=== PATIENT | female | born 1980 | race Caucasian/White ===

== ENCOUNTER 2017-01-16 08:20 | Emergency (ER) | payer OTHER ==
[2017-01-16 08:30] VITALS: BP 118/73; PULSE 73; RESP 18; TEMP 97.3
--- NOTE | 2017-01-16 09:23 | ED ---
General Adult HPI - General Chief complaint: Skin/Abscess/Foreign Body Stated complaint: ear pain Time Seen by Provider: 01/16/17 08:47 Source: patient, RN notes reviewed Mode of arrival: ambulatory Limitations: no limitations - History of Present Illness Initial comments: Patient 36-year-old female who presents emergency room today with a chief complaint of an abscess behind the left ear. Doesn't that she's had this several times the past. States she's had to have it drained. States started 3 days ago was become larger and more swollen. Denies any other complaints or symptoms. Patient denies any recent fever, chills, shortness of breath, chest pain, back pain, abdominal pain, nausea or vomiting, numbness or tingling, dysuria or hematuria, constipation or diarrhea, headaches or visual changes, or any other complaints. - Related Data Home Medications Medication Instructions Recorded Confirmed Ibuprofen [Motrin] 800 mg PO Q8HR PRN 07/24/14 01/16/17 Previous Rx's Medication Instructions Recorded Sulfamethox-Tmp 800-160Mg [Bactrim 1 tab PO Q12HR #20 tab 01/16/17 DS 800-160 mg] Allergies Allergy/AdvReac Type Severity Reaction Status Date / Time No Known Allergies Allergy Verified 01/16/17 08:44 Review of Systems ROS Statement: Those systems with pertinent positive or pertinent negative responses have been documented in the HPI. ROS Other: All systems not noted in ROS Statement are negative. Past Medical History Past Medical History: No Reported History Additional Past Medical History / Comment(s): migraines History of Any Multi-Drug Resistant Organisms: None Reported Past Surgical History: Section Past Psychological History: No Psychological Hx Reported Smoking Status: Former smoker Past Alcohol Use History: Occasional Past Drug Use History: None Reported General Exam - General Exam Comments Initial Comments: General: The patient is awake and alert, in no distress, and does not appear acutely ill. Eye: Pupils are equal, round and reactive to light, extra-ocular movements are intact. No nystagmus. There is normal conjunctiva bilaterally. No signs of icterus. Ears, nose, mouth and throat: There are moist mucous membranes and no oral lesions. Neck: The neck is supple, there is no tenderness or JVD. Cardiovascular: There is a regular rate and rhythm. No murmur, rub or gallop is appreciated. Respiratory: Lungs are clear to auscultation, respirations are non-labored, breath sounds are equal. No wheezes, stridor, rales, or rhonchi. Musculoskeletal: Normal ROM, no tenderness. Strength 5/5. Sensation intact. Pulses equal bilaterally 2+. Neurological: A&O x 3. CN II-XII intact, There are no obvious motor or sensory deficits. Coordination appears grossly intact. Speech is normal. Skin: Patient does have small abscess located behind the left ear. Measures approximately a centimeter across. Area is fluctuant. No abscess head. Psychiatric: Cooperative, appropriate mood & affect, normal judgment. Limitations: no limitations Course Vital Signs 01/16/17 08:27 Temperature 97.3 F L Pulse Rate 73 Respiratory 18 Rate Blood Pressure 118/73 O2 Sat by Pulse 98 Oximetry Procedures - Procedures Initial comment: Procedure: Incision and drainage The skin overlying the abscess was prepped with Betadine, and anesthetized with 1% lidocaine without epinephrine. A #11 scalpel was then used to incise the abscess. Some purulent material was then extracted from the lesion. Wound culture obtained. Gauze dressing placed on top, The patient tolerated the procedure well. Medical Decision Making - Medical Decision Making Agents abscess drained here in the emergency room be started on antibiotic. Patient advised to follow-up Gen. surgery or reliability manager for further evaluation and removal of sebaceous cyst. Disposition Clinical Impression: Abscess Disposition: HOME SELF-CARE Condition: Good Instructions: Abscess (ED) Additional Instructions: Please use medication as discussed. Please follow-up with reliability manager or general surgeon as discussed. Please return to emergency room if the symptoms increase or worsen or for any other concerns. Prescriptions: Sulfamethox-Tmp 800-160Mg [Bactrim DS 800-160 mg] 1 tab PO Q12HR #20 tab Referrals: Do Altman MD [Primary Care Provider] - 1-2 days Amauri Ren MD [STAFF PHYSICIAN] - 1-2 days Time of Disposition: 09:23
== END 2017-01-16 09:37 | disposition home or self-care (01) ==
LOC: EC 08:20
DX: H60.02 Abscess of left external ear (principal); Z87.891 Personal history of nicotine dependence
CPT/HCPCS: 69000; 99282

== ENCOUNTER → 2017-02-10 | Outpatient (CLI) | payer OTHER ==
--- NOTE | 2017-02-10 09:07 | CT ---
EXAMINATION TYPE: CT soft tissue neck wo con DATE OF EXAM: 02/10/2017 8:53 AM COMPARISON: NONE HISTORY: Neck mass/swelling CT DLP: 333.00 mGycm CONTRAST: CT scan of the neck is performed without contrast. The lack of contrast limits evaluation. The study is further limited by streak artifact from dental amalgam. Marker is placed over the left parotid gla nd. Contrast enhanced CT of the neck was performed from the skull base through the lung apices. AIRWAY: The supraglottic, glottic, and subglottic portions of the airway appear patent and free of mass. SALIVARY GLANDS: The submandibular and parotid glands are free of mass or inflammatory process. Ther e are calcifications noted in the expected location of Stensen's duct bilaterally. Stensen's duct mauro cifications difficult to exclude. THYROID GLAND: Tiny 3 mm nodule right thyroid lobe. LYMPH NODES: No adenopathy seen greater than 1cm. LUNG APICES: No nodule or mass is seen. OTHER: Vascular structures are patent. No significant degenerative change of the cervical spine. N o abscess seen. Mucosal thickening is noted of the maxillary sinuses as well as the ethmoid air cells and frontal sinus. IMPRESSION: 1.There are calcifications noted in the expected location of Stensen's duct bilaterally. Stensen's du ct calcifications difficult to exclude. 2. Nonspecific 3 mm nodule right thyroid lobe. 3. Chronic sinusitis.
== END | disposition home or self-care (01) ==
LOC: RADCTMAIN 08:32
PROVIDERS: ATTEND Surgery
DX: E04.1 Nontoxic single thyroid nodule (principal); J32.9 Chronic sinusitis, unspecified
CPT/HCPCS: 70490

== ENCOUNTER 2017-02-27 06:09 | Day surgery (SDC) | payer OTHER ==
[2017-02-24 12:29] VITALS: BMI 27.4
[~2017-02-27 06:09] MED LIST: DEXAMETHASONE SOD PHOSPHATE 10 MG/ML 1 ML VIAL IV ONE; HEPARIN SODIUM,PORCINE 5,000 UNIT/ML 1 ML VIAL SQ ONE; HYDROmorphone 1 MG/ML 1 ML SYRINGE IVP PRN; LACTATED RINGERS 1,000 ML IV SCH; MIDAZOLAM 2 MG/2 ML VIAL IV PRN; ONDANSETRON 4 MG/2 ML VIAL IVP ONE; Pre Op ABX Message 1 EACH MISC MISCELLANE ONE
[2017-02-27 06:40] VITALS: RESP 16; TEMP 97.3
[2017-02-27] MEDS: LACTATED RINGERS 1,000 ML IV SCH ×2 (06:42→07:38)
[2017-02-27] MEDS ORDERED: LIDOCAINE 1% 20 ML VIAL (10MG/ML) FOR IV START INTRADERMA ONE (06:42)
[2017-02-27] MEDS ORDERED: KETAMINE 10 MG/ML 20 ML VIAL ONE (07:38)
[2017-02-27] MEDS ORDERED: diphenhydrAMINE 50 MG/ML 1 ML VIAL ONE (07:38)
[2017-02-27] MEDS ORDERED: SODIUM CHLORIDE 0.9% 50 ML with ceFAZolin 2,000 MG IV ONE ×2 (07:38)
[2017-02-27] MEDS ORDERED: PROPOFOL 10 MG/ML 20 ML VIAL IV ONE (07:38)
[2017-02-27] MEDS ORDERED: fentaNYL (PF) 50 MCG/ML 2 ML AMP ONE (07:38)
[2017-02-27] MEDS ORDERED: LIDOCAINE 1% INJ 10MG/ML (20 ML MDV) ONE (07:38)
[2017-02-27] MEDS ORDERED: KETOROLAC 30 MG/ML 1 ML VIAL ONE (07:38)
[2017-02-27] MEDS ORDERED: MIDAZOLAM 2 MG/2 ML VIAL ONE (07:38)
[2017-02-27] MEDS ORDERED: BUPIVACAIN-EPI 0.25%-1:200,000 30 ML VIAL SQ ONE ×2 (07:50)
--- NOTE | 2017-02-27 08:25 | P.OP ---
Date of Procedure: 02/27/17 Preoperative Diagnosis: Excision of left retroauricular skin lesion Postoperative Diagnosis: Excision of epidermoid cyst Procedure(s) Performed: Excision of dermoid cyst, skin lesion measured 0.4 x 0.3 x 0.1 cm Anesthesia: MAC Pathology: other Disposition: PACU Description of Procedure: Patient a 36-year-old female who presented with a small skin lesion in the retroauricular region with an syndrome and is foul-smelling discharge. This was consistent with a sebaceous cyst. Computed tomography scan did not reveal this to be a branchial cyst. After obtaining informed consent patient was identified in preoperative operating holding area to the operating room placed in supine position given IV sedation. The patient was prepped and draped in the usual sterile surgical fashion and an appropriate timeout was called. After infiltrating local anesthesia A 15 blade was used to make an elliptical incision around the lesion to skin and subcutis tissue with the help of scissors and electrocautery. The subcutis tissue was completely excised with the help of sharp dissection and hemostasis secured with electrocautery after which skin closed with stitches including 3-0 Vicryl and 5-0 nylon. Patient tolerated the procedure well there were no complications she was then taken recovery room in stable condition.
[2017-02-27 08:44] VITALS: BP 100/59; PULSE 71
== END 2017-02-27 09:10 | disposition home or self-care (01) ==
LOC: OR 06:09
PROVIDERS: ATTEND Surgery
DX: L08.9 Local infection of the skin and subcutaneous tissue, unspecified (principal); L90.5 Scar conditions and fibrosis of skin
CPT/HCPCS: 11441; 81025; 88305; J2250; J1200; J1100; J2405; J2001; J3010; J1885; J0690; J2704

== ENCOUNTER 2017-06-11 18:13 | Emergency (ER) | payer OTHER ==
[2017-06-11] MEDS ORDERED: SODIUM CHLORIDE 0.9% 1,000 ML IV STA (19:23)
[2017-06-11] MEDS ORDERED: diphenhydrAMINE 50 MG/ML 1 ML VIAL IVP STA (19:24)
[2017-06-11] MEDS ORDERED: METOCLOPRAMIDE 5 MG/ML 2 ML VIAL IVP STA (19:24)
--- NOTE | 2017-06-11 19:25 | ED ---
General Adult HPI - General Chief complaint: Headache Stated complaint: migraine Time Seen by Provider: 06/11/17 19:16 Source: patient, RN notes reviewed Mode of arrival: ambulatory Limitations: no limitations - History of Present Illness Initial comments: 37-year-old female presents to the emergency Department chief complaint of migraine. Patient states she is long history of migraines and states that she developed a migraine today about 2 hours ago that is gradually gotten worse. Patient states it's much like her normal pain. Patient states she has some photophobia and some nausea. Patient states she has had the blurred vision as well. These are all typical of her migraines she takes Fioricet for migraines but this did not seem to help. Patient denies any fever chills with this any cough cold or runny nose. Patient denies any falls or traumas that led to her migraine. Patient states it is more her normal migraine. Patient denies any recent fever, chills, shortness of breath, chest pain, back pain, abdominal pain , nausea vomiting, numbness or tingling, dysuria or hematuria, constipation or diarrhea, or any other current symptoms. - Related Data Home Medications Medication Instructions Recorded Confirmed Ibuprofen [Motrin] 800 mg PO Q8HR PRN 07/24/14 02/24/17 Butalb/APAP/Caff 50-325-40Mg 1 tab PO BID PRN 06/11/17 06/11/17 [Fioricet 50-325-40] Allergies Allergy/AdvReac Type Severity Reaction Status Date / Time No Known Allergies Allergy Verified 06/11/17 18:22 Review of Systems ROS Statement: Those systems with pertinent positive or pertinent negative responses have been documented in the HPI. ROS Other: All systems not noted in ROS Statement are negative. Past Medical History Past Medical History: No Reported History Additional Past Medical History / Comment(s): migraines, skin lesion behind left ear, hx anemia, History of Any Multi-Drug Resistant Organisms: None Reported Past Surgical History: Section, Tonsillectomy Additional Past Surgical History / Comment(s): C/S x 3 Past Anesthesia/Blood Transfusion Reactions: No Reported Reaction Past Psychological History: No Psychological Hx Reported Smoking Status: Current some day smoker Past Alcohol Use History: Occasional Past Drug Use History: None Reported - Past Family History Mother Family Medical History: No Reported History General Exam Limitations: no limitations General appearance: alert, in no apparent distress Eye exam: Present: normal appearance, PERRL, EOMI. Absent: scleral icterus, conjunctival injection, periorbital swelling ENT exam: Present: normal exam, mucous membranes moist Neck exam: Present: normal inspection. Absent: tenderness, meningismus, lymphadenopathy Respiratory exam: Present: normal lung sounds bilaterally. Absent: respiratory distress, wheezes, rales, rhonchi, stridor Cardiovascular Exam: Present: regular rate, normal rhythm, normal heart sounds. Absent: systolic murmur, diastolic murmur, rubs, gallop, clicks Neurological exam: Present: alert, oriented X3, CN II-XII intact. Absent: motor sensory deficit Psychiatric exam: Present: normal affect, normal mood Skin exam: Present: warm, dry, intact, normal color. Absent: rash Course Vital Signs 06/11/17 18:20 Temperature 98.3 F Pulse Rate 75 Respiratory 20 Rate Blood Pressure 132/80 O2 Sat by Pulse 99 Oximetry - Reevaluation(s) Reevaluation #1: 06/11/17 20:35 At this time patient is feeling better and would like to be discharged. Medical Decision Making - Medical Decision Making 37 yo female presents to the emergency Department chief complaint of headache much like her normal headaches. Patient's symptoms have improved. This and the patient will be discharged home. We discussed follow-up return parameters all questions. Patient states she understood and she is here and plan. She will be discharged. Disposition Clinical Impression: Headache Disposition: HOME SELF-CARE Condition: Stable Instructions: Acute Headache (ED) Additional Instructions: Please use medication as discussed. Please follow up with family doctor if symptoms have not improved over the next two days. Please return to the emergency room if your symptoms increase or worsen or for any other concerns. Referrals: Do Altman MD [Primary Care Provider] - 1-2 days Time of Disposition: 20:35
[2017-06-11 20:44] VITALS: BP 110/71; PULSE 72; RESP 15; TEMP 98.4
== END 2017-06-11 20:44 | disposition home or self-care (01) ==
LOC: EC 18:13
DX: R51 Headache (principal); R11.0 Nausea; H53.149 Visual discomfort, unspecified; H53.8 Other visual disturbances; Z86.69 Personal history of other diseases of the nervous system and sense organs; F17.200 Nicotine dependence, unspecified, uncomplicated
CPT/HCPCS: 96361; 96374 ×2; 96375 ×2; 99283 ×2; J1200; J2765; 96360

== ENCOUNTER 2017-07-09 14:41 | Emergency (ER) | payer OTHER ==
[2017-07-09 14:50] VITALS: TEMP 98.4
[2017-07-09] MEDS ORDERED: KETOROLAC 30 MG/ML 1 ML VIAL IVP STA (15:13)
[2017-07-09] MEDS ORDERED: METOCLOPRAMIDE 5 MG/ML 2 ML VIAL IVP STA (15:13)
[2017-07-09] MEDS ORDERED: SODIUM CHLORIDE 0.9% 1,000 ML IV STA (15:13)
[2017-07-09] MEDS ORDERED: diphenhydrAMINE 50 MG/ML 1 ML VIAL IVP STA (15:13)
--- NOTE | 2017-07-09 15:16 | ED ---
Headache HPI - General Chief Complaint: Headache Stated Complaint: Headache Time Seen by Provider: 07/09/17 15:07 Source: RN notes reviewed Mode of arrival: ambulatory Limitations: no limitations - History of Present Illness Initial Comments: Patient 37-year-old female who presents emergency room today with a chief complaint of migraine headache. She does admit that her migraine started approximately 2 hours ago. Is to photosensitivity, nausea and vomiting. States headache is located in the front. Describes it as sharp, dull, achy. She states only symptoms are consistent with migraine headaches that she's had in the past. She states she tried [id number] medicines with little relief. She denies any other complaints or symptoms at this time. Patient denies any recent fever, chills, shortness of breath, chest pain, back pain, abdominal pain, numbness or tingling, dysuria or hematuria, constipation or diarrhea, visual changes, or any other complaints. - Related Data Home Medications Medication Instructions Recorded Confirmed Ibuprofen [Motrin] 800 mg PO Q8HR PRN 07/24/14 07/09/17 Butalb/APAP/Caff 50-325-40Mg 1 tab PO BID PRN 06/11/17 07/09/17 [Fioricet 50-325-40] Previous Rx's Medication Instructions Recorded Naproxen 500 mg PO BID #20 tablet 07/09/17 Allergies Allergy/AdvReac Type Severity Reaction Status Date / Time No Known Allergies Allergy Verified 07/09/17 15:42 Review of Systems ROS Statement: Those systems with pertinent positive or pertinent negative responses have been documented in the HPI. ROS Other: All systems not noted in ROS Statement are negative. Past Medical History Past Medical History: No Reported History Additional Past Medical History / Comment(s): migraines, skin lesion behind left ear, hx anemia, History of Any Multi-Drug Resistant Organisms: None Reported Past Surgical History: Section, Tonsillectomy Additional Past Surgical History / Comment(s): C/S x 3 Past Anesthesia/Blood Transfusion Reactions: No Reported Reaction Past Psychological History: No Psychological Hx Reported Smoking Status: Current some day smoker Past Alcohol Use History: Occasional Past Drug Use History: None Reported - Past Family History Mother Family Medical History: No Reported History General Exam - General Exam Comments Initial Comments: General: The patient is awake and alert, in no distress, and does not appear acutely ill. Eye: Pupils are equal, round and reactive to light, extra-ocular movements are intact. No nystagmus. There is normal conjunctiva bilaterally. No signs of icterus. Ears, nose, mouth and throat: There are moist mucous membranes and no oral lesions. Neck: The neck is supple, there is no tenderness or JVD. Cardiovascular: There is a regular rate and rhythm. No murmur, rub or gallop is appreciated. Respiratory: Lungs are clear to auscultation, respirations are non-labored, breath sounds are equal. No wheezes, stridor, rales, or rhonchi. Gastrointestinal: Soft, non-distended, non-tender abdomen without masses or organomegaly noted. There is no rebound or guarding present. No CVA tenderness. Bowel sounds are unremarkable. Musculoskeletal: Normal ROM, no tenderness. Strength 5/5. Sensation intact. Pulses equal bilaterally 2+. Neurological: A&O x 3. CN II-XII intact, There are no obvious motor or sensory deficits. Coordination appears grossly intact. Speech is normal. Skin: Skin is warm and dry and no rashes or lesions are noted. Psychiatric: Cooperative, appropriate mood & affect, normal judgment. Limitations: no limitations Course Vital Signs 07/09/17 14:49 Temperature 98.4 F Pulse Rate 84 Respiratory 20 Rate Blood Pressure 113/66 O2 Sat by Pulse 99 Oximetry Medical Decision Making - Medical Decision Making Patient reexamined at this time shows no signs of distress. Feeling better after Toradol, Reglan, Benadryl, and IV fluids here in the emergency room. Will be discharged home with anti-inflammatories to continue to use for any rebound headaches. Advised to follow-up family doctor return here to the emergency room for any other concerns. Disposition Clinical Impression: Migraine Disposition: HOME SELF-CARE Condition: Good Instructions: Migraine Headache (ED) Additional Instructions: Please use medication as discussed. Please follow-up with family doctor in the next 2 days of symptoms have not improved. Please return to emergency room if the symptoms increase or worsen or for any other concerns. Prescriptions: Naproxen 500 mg PO BID #20 tablet Referrals: Do Altman MD [Primary Care Provider] - 1-2 days Time of Disposition: 16:17
[2017-07-09 16:30] VITALS: BP 110/72; PULSE 74; RESP 17
== END 2017-07-09 16:29 | disposition home or self-care (01) ==
LOC: EC 14:41
DX: G43.909 Migraine, unspecified, not intractable, without status migrainosus (principal); F17.200 Nicotine dependence, unspecified, uncomplicated
CPT/HCPCS: 99283 ×2; 96374 ×2; 96375 ×3; 96361 ×2; J1200; J2765; J1885

== ENCOUNTER 2018-07-22 10:55 | Emergency (ER) | payer OTHER ==
[2018-07-22 11:03] VITALS: TEMP 98.1
[2018-07-22] MEDS ORDERED: METOCLOPRAMIDE 5 MG/ML 2 ML VIAL IVP STA (11:20)
[2018-07-22] MEDS ORDERED: KETOROLAC 30 MG/ML 1 ML VIAL IVP STA (11:20)
[2018-07-22] MEDS ORDERED: SODIUM CHLORIDE 0.9% 1,000 ML IV STA (11:20)
[2018-07-22] MEDS ORDERED: DEXAMETHASONE SOD PHOSPHATE 4 MG/ML 1 ML VIAL IV STA (11:22)
--- NOTE | 2018-07-22 11:33 | ED ---
Headache HPI - General Chief Complaint: Headache Stated Complaint: Headache Time Seen by Provider: 07/22/18 11:13 Mode of arrival: ambulatory Limitations: no limitations - History of Present Illness Initial Comments: 38 years old female has a history of migraines for the last 10 years she is quite nauseous right now no vomiting at this point headache started few hours prior to arrival to the ER she did take some Fioricet this morning it didn't quite help. Anti-inflammatories to help her most the time. She denies any fever no chills no neck stiffness no chest pain or shortness of breath no abdominal pain no frequency urgency dysuria no symptoms of TIA or CVA - Related Data Home Medications Medication Instructions Recorded Confirmed Ibuprofen [Motrin] 800 mg PO Q8HR PRN 07/24/14 07/22/18 Ibuprofen [Motrin Ib] 200 - 400 mg PO Q6H PRN 07/22/18 07/22/18 Allergies Allergy/AdvReac Type Severity Reaction Status Date / Time No Known Allergies Allergy Verified 07/22/18 12:28 Review of Systems ROS Statement: Those systems with pertinent positive or pertinent negative responses have been documented in the HPI. ROS Other: All systems not noted in ROS Statement are negative. Past Medical History Past Medical History: No Reported History Additional Past Medical History / Comment(s): migraines, skin lesion behind left ear, hx anemia, History of Any Multi-Drug Resistant Organisms: None Reported Past Surgical History: Section, Tonsillectomy Additional Past Surgical History / Comment(s): C/S x 3 Past Anesthesia/Blood Transfusion Reactions: No Reported Reaction Past Psychological History: No Psychological Hx Reported Smoking Status: Current every day smoker Past Alcohol Use History: Occasional Past Drug Use History: None Reported - Past Family History Mother Family Medical History: No Reported History General Exam - General Exam Comments Initial Comments: General: The patient is awake and alert, in mild distress, GCS is 15 Skin: Skin is warm and dry and no rashes or lesions are noted. Eye: Pupils are equal, round and reactive to light, extra-ocular movements are intact; there is normal conjunctiva bilaterally. Ears, nose, mouth and throat: And over the right maxillary sinus area as well as right frontal sinus area Neck: The neck is supple, there is no tenderness , no signs of meningitis Cardiovascular: There is a regular rate and rhythm. No murmur, rub or gallop is appreciated. Respiratory: To auscultation bilateral, no wheezing no rhonchi no distress respiratory cole noticed Gastrointestinal: Soft, non-distended, non-tender abdomen without masses or organomegaly noted. There is no rebound or guarding present. Bowel sounds are unremarkable. Back: There is no tenderness to palpation in the midline. There is no obvious deformity. Musculoskeletal: Normal ROM, no tenderness, There is no pedal edema. There is no calf tenderness or swelling. No cords were appreciated. Neurological: CN II-XII intact, Cranial nerves III through XII are intact. There are no obvious motor or sensory deficits. Coordination appears grossly intact. Speech is normal. Psychiatric: Cooperative, appropriate mood & affect, normal judgment. Limitations: no limitations Course Vital Signs 07/22/18 07/22/18 11:01 12:32 Temperature 98.1 F Pulse Rate 81 76 Respiratory 20 18 Rate Blood Pressure 114/78 119/70 O2 Sat by Pulse 100 99 Oximetry At term 1400 she feels lot better she has her family here present in the room they're take her home she be discharged to go home. She is advised to take her furesite and Motrin on an as-needed basis for her headaches - Reevaluation(s) Reevaluation #1: Is reassessed at 1231 and she feels slightly better, she is not nauseous anymore will give her 2 mg of morphin iv now. 07/22/18 12:31 Disposition Clinical Impression: Migraine Disposition: HOME SELF-CARE Condition: Good Instructions: Migraine Headache (ED) Is patient prescribed a controlled substance at d/c from ED?: No Referrals: None,Stated [Primary Care Provider] - 1-2 days
[2018-07-22] MEDS ORDERED: MORPHINE SULFATE 2 MG/ML SYRINGE IVP STA (12:33)
[2018-07-22 12:35] VITALS: RESP 18
[2018-07-22] MEDS ORDERED: ONDANSETRON 4 MG/2 ML VIAL IVP STA (12:41)
[2018-07-22 14:13] VITALS: BP 108/59; PULSE 71
== END 2018-07-22 14:14 | disposition home or self-care (01) ==
LOC: EC 10:55
DX: G43.909 Migraine, unspecified, not intractable, without status migrainosus (principal); R40.2412 Glasgow coma scale score 13-15, at arrival to emergency department; F17.200 Nicotine dependence, unspecified, uncomplicated
CPT/HCPCS: 99283; 96374; 96375 ×4; 96361 ×2; J1100; J2765; J2405; J1885; J2270

== ENCOUNTER 2018-07-29 02:45 | Emergency (ER) | payer OTHER ==
[2018-07-29 02:52] VITALS: TEMP 98.3
[2018-07-29] MEDS ORDERED: KETOROLAC 30 MG/ML 1 ML VIAL IVP STA (03:18)
[2018-07-29] MEDS ORDERED: SODIUM CHLORIDE 0.9% 1,000 ML IV ONE (03:18)
[2018-07-29] MEDS ORDERED: diphenhydrAMINE 50 MG/ML 1 ML VIAL IVP STA (03:18)
[2018-07-29] MEDS ORDERED: METOCLOPRAMIDE 5 MG/ML 2 ML VIAL IVP STA (03:18)
--- NOTE | 2018-07-29 03:29 | ED ---
Headache HPI - General Chief Complaint: Headache Stated Complaint: Headache Time Seen by Provider: 07/29/18 03:14 Mode of arrival: ambulatory Limitations: no limitations - History of Present Illness Initial Comments: 38-year-old female patient presents to the emergency department today for evaluation of migraine headache. Patient states that symptoms started at 1:30 this morning. Patient states that she did take [id number] pain reliever but it has not helped. Patient states she does have a history of migraine headaches and has had 2 this week. States she is having some blurred vision, light sensitivity, and sound sensitivity with this. Patient states that the pain is mostly located in the frontal region. She denies any numbness, tingling , dizziness, or weakness. States she has vomited 1 time. Denies any abdominal pain, constipation, or diarrhea. Patient does have a history of migraine headaches and states her symptoms are consistent with her usual migraine pattern. Patient denies any recent rash, fever, chills, shortness breath, chest pain, constipation, back pain, hematuria, dysuria, urinary urgency, urinary frequency, or any other complaints. - Related Data Home Medications Medication Instructions Recorded Confirmed Ibuprofen [Motrin] 800 mg PO Q8HR PRN 07/24/14 07/22/18 Ibuprofen [Motrin Ib] 200 - 400 mg PO Q6H PRN 07/22/18 07/22/18 Allergies Allergy/AdvReac Type Severity Reaction Status Date / Time No Known Allergies Allergy Verified 07/29/18 02:52 Review of Systems ROS Statement: Those systems with pertinent positive or pertinent negative responses have been documented in the HPI. ROS Other: All systems not noted in ROS Statement are negative. Past Medical History Past Medical History: No Reported History Additional Past Medical History / Comment(s): migraines, skin lesion behind left ear, hx anemia, History of Any Multi-Drug Resistant Organisms: None Reported Past Surgical History: Section, Tonsillectomy Additional Past Surgical History / Comment(s): C/S x 3 Past Anesthesia/Blood Transfusion Reactions: No Reported Reaction Past Psychological History: No Psychological Hx Reported Smoking Status: Current every day smoker Past Alcohol Use History: Occasional Past Drug Use History: None Reported - Past Family History Mother Family Medical History: No Reported History General Exam Limitations: no limitations General appearance: alert, in no apparent distress, other (This is a well- developed, well-nourished adult female patient in no acute distress. Vital signs upon presentation are temperature 98.3F, pulse 72, respirations 18, blood pressure 110/73, pulse ox 98% on room air.) Eye exam: Present: normal appearance, PERRL, EOMI. Absent: scleral icterus, conjunctival injection, nystagmus, periorbital swelling ENT exam: Present: normal exam, normal oropharynx, mucous membranes moist Respiratory exam: Present: normal lung sounds bilaterally. Absent: respiratory distress, wheezes, rales, rhonchi, stridor Cardiovascular Exam: Present: regular rate, normal rhythm, normal heart sounds. Absent: systolic murmur, diastolic murmur, rubs, gallop, clicks GI/Abdominal exam: Present: soft, normal bowel sounds. Absent: distended, tenderness, guarding, rebound, rigid Neurological exam: Present: alert, oriented X3, CN II-XII intact Expanded Speech: Present: fluid speech Cranial nerves: EOM's Intact: Normal, Nystagmus: Normal Motor strength exam: RUE: 5, LUE: 5, RLE: 5, LLE: 5 Psychiatric exam: Present: normal affect, normal mood Skin exam: Present: warm, dry, intact, normal color. Absent: rash Course Vital Signs 07/29/18 07/29/18 02:51 04:31 Temperature 98.3 F Pulse Rate 72 81 Respiratory 18 16 Rate Blood Pressure 110/73 105/58 O2 Sat by Pulse 98 99 Oximetry Medical Decision Making - Medical Decision Making 38-year-old female patient presents to the emergency department today for evaluation of migraine headache. Physical examination is unremarkable. Patient is neurologically intact. Patient reports symptoms are consistent with her usual migraine pattern and she has no new symptoms. She was given IV fluids and medications here in the department, she does report improvement of her symptoms. She is currently reporting headache at a 4 out of 10 on the pain scale. She does have being discharged home at this time to follow-up with her primary care physician for recheck in 1-2 days. Return parameters discussed in detail. She verbalizes understanding and agrees this plan. Disposition Clinical Impression: Migraine headache Disposition: HOME SELF-CARE Condition: Good Instructions: Migraine Headache (ED) Additional Instructions: Increase fluids. Rest. Follow up with her primary care physician for recheck in 1-2 days. Return here immediately for any new, worsening, or concerning symptoms. Is patient prescribed a controlled substance at d/c from ED?: No Referrals: Mima Montiel MD [STAFF PHYSICIAN] - 1-2 days Time of Disposition: 04:42
[2018-07-29 05:16] VITALS: BP 100/63; PULSE 97; RESP 18
== END 2018-07-29 05:15 | disposition home or self-care (01) ==
LOC: EC 02:45
DX: G43.909 Migraine, unspecified, not intractable, without status migrainosus (principal); F17.200 Nicotine dependence, unspecified, uncomplicated
CPT/HCPCS: 99283; 96374; 96375 ×2; 96361; J1200; J2765; J1885

== ENCOUNTER 2018-11-10 14:48 | Emergency (ER) | payer OTHER ==
[2018-11-10 14:53] VITALS: BP 121/82; PULSE 74; RESP 16; TEMP 98.1
--- NOTE | 2018-11-10 16:02 | ED ---
General Adult HPI - General Chief complaint: Eye Problems Stated complaint: poss pink eye Source: patient, RN notes reviewed, old records reviewed Mode of arrival: ambulatory Limitations: no limitations - History of Present Illness Initial comments: 38-year-old female patient with no pertinent past medical history presents to ED with 1 day of right eye irritation. Patient does were contacts and glasses, last or contacts approximately one week ago. Patient states that she woke up this morning with some lash matting, eye itching, red eye, discharge. Patient believes that she has 'pink eye'. Patient denies other symptoms including foreign body sensation, any foreign bodies in eye, nausea vomiting diarrhea, fever chills, chest pain, shortness of breath, abdominal pain. No recent falls or trauma to head. Systemic: Pt denies fatigue, myalgia, fever/chills, rash. Pt denies weakness, night sweats, weight loss. Neuro: Pt denies headache, visual disturbances, syncope or pre-syncope. HEENT: Pt denies otalgia, rhinorrhea, pharyngitis or notable lymphadenopathy. Cardiopulmonary: Pt denies chest pain, SOB, heart palpitations, dyspnea on exertion. Abdominal/GI: Pt denies abdominal pain, n/v/d. : Pt denies dysuria, burning w/ urination, frequency/urgency. Denies new onset urinary or bowel incontinence. MSK: Pt denies myalgia, loss of strength or function in extremities. Neuro: Pt denies new onset weakness, paresthesias. - Related Data Home Medications Medication Instructions Recorded Confirmed Ibuprofen [Motrin] 800 mg PO Q8HR PRN 07/24/14 07/22/18 Ibuprofen [Motrin Ib] 200 - 400 mg PO Q6H PRN 07/22/18 07/22/18 Previous Rx's Medication Instructions Recorded Gentamicin 0.3% Ophth Oint [Gentak 1 applic RIGHT EYE Q8H 5 Days #1 11/10/18 0.3% Ophth Oint] tube Allergies Allergy/AdvReac Type Severity Reaction Status Date / Time No Known Allergies Allergy Verified 11/10/18 14:52 Review of Systems ROS Statement: Those systems with pertinent positive or pertinent negative responses have been documented in the HPI. ROS Other: All systems not noted in ROS Statement are negative. Past Medical History Past Medical History: No Reported History Additional Past Medical History / Comment(s): migraines, skin lesion behind left ear, hx anemia, History of Any Multi-Drug Resistant Organisms: None Reported Past Surgical History: Section, Tonsillectomy Additional Past Surgical History / Comment(s): C/S x 3 Past Anesthesia/Blood Transfusion Reactions: No Reported Reaction Past Psychological History: No Psychological Hx Reported Smoking Status: Current every day smoker Past Alcohol Use History: Occasional Past Drug Use History: None Reported - Past Family History Mother Family Medical History: No Reported History General Exam - General Exam Comments Initial Comments: Constitutional: NAD, AOX3, Pt has pleasant affect. HEENT: NC/AT, trachea midline, neck supple, no lymphadenopathy. Posterior pharynx non erythematous, without exudates. External ears appear normal, without discharge. Mucous membranes moist. Eyes PERRLA, EOM intact. In right eye : Mild injection noted diffusely, mild amount of lash matting. No pain intact ocular movements. Patient states that visual acuity at baseline. There is no scleral icterus. No pallor noted. 20/20 unaffected eye, 20/25 affected eye, 20/ 15 bilateral. Slightly decreased acuity 2/2 mild inflammation. Cardiopulmonary: RRR, no murmurs, rubs or gallops, no JVD noted. Lungs CTAB in anterior and posterior moise. No peripheral edema. Abdominal exam: Abdomen soft and non-distended. Abdomen non-tender to palpation in all 4 quadrants. Bowel sounds active in LLQ. No hepatosplenomegaly. No ecchymosis Neuro: CN II-XII grossly intact. No nuchal rigidity. MSK: No posterior calf tenderness bilaterally, homans sign negative bilaterally. Posterior tibialis and radial pulse +2 bilaterally. Sensation intact in upper and lower extremities. Full active ROM in upper and lower extremities, 5/5 stregnth. Limitations: no limitations Course Vital Signs 11/10/18 14:50 Temperature 98.1 F Pulse Rate 74 Respiratory 16 Rate Blood Pressure 121/82 O2 Sat by Pulse 98 Oximetry Medical Decision Making - Medical Decision Making 38-year-old female patient with no pertinent past medical history presents to ED with 1 day of right eye irritation. Patient does were contacts and glasses, last or contacts approximately one week ago. Patient states that she woke up this morning with some lash matting, eye itching, red eye, discharge. Patient believes that she has 'pink eye'. Patient denies other symptoms including foreign body sensation, any foreign bodies in eye, nausea vomiting diarrhea, fever chills, chest pain, shortness of breath, abdominal pain. No recent falls or trauma to head. Physical exam displayed mild injection to the right eye, mild amount of discharge, lash matting noted. Check a movements were intact. Eyes are PERRLA. Patient is no pain with extra ocular movements, no foreign body sensation. Visual acuity displayed, 20/20 unaffected eye, 20/25 affected eye, 20/15 bilateral. Slightly decreased acuity 2/2 mild inflammation. Patient to continue to monitor the symptoms. No other acute pathologic findings and physical exam, systems exam including neuro, cardiopulmonary, abdominal, HEENT, musculoskeletal. Patient to be treated for acute conjunctivitis. Patient to be treated with gentamicin ophthalmic ointment for 5 days. Patient to follow- up PCP in 1-2 days. Patient given referral for customer sales consultant. Patient to follow up customer sales consultant if symptoms do not improve within 2 days. Patient to return to ED if new symptoms develop including decreased visual acuity, pain right eye, nausea vomiting diarrhea, headache, any other new symptoms. Case discussed with Dr. Souza. Disposition Clinical Impression: Conjunctivitis, right eye Disposition: HOME SELF-CARE Condition: Good Instructions: Conjunctivitis (ED) Prescriptions: Gentamicin 0.3% Ophth Oint [Gentak 0.3% Ophth Oint] 1 applic RIGHT EYE Q8H 5 Days #1 tube Is patient prescribed a controlled substance at d/c from ED?: No Referrals: None,Stated [Primary Care Provider] - 1-2 days Gatito Naqvi MD [STAFF PHYSICIAN] - 1-2 days Time of Disposition: 16:02
== END 2018-11-10 16:17 | disposition home or self-care (01) ==
LOC: EC 14:48
DX: H10.9 Unspecified conjunctivitis (principal); F17.200 Nicotine dependence, unspecified, uncomplicated
CPT/HCPCS: 99283

== ENCOUNTER → 2019-01-07 | Outpatient (CLI) | payer OTHER ==
--- NOTE | 2019-01-07 14:32 | MM ---
Reason for exam: screening (asymptomatic). Baseline mammogram. History: Family history of breast cancer in paternal grandmother. Physical Findings: Nurse did not find any significant physical abnormalities on exam. MG Screening Mammo w CAD Bilateral CC and MLO view(s) were taken. The breast tissue is heterogeneously dense. This may lower the sensitivity of mammography. Stable benign calcifications. There is no discrete abnormality. These results were verbally communicated with the patient and result sheet given to the patient on 01/07/19. ASSESSMENT: Benign, BI-RAD 2 RECOMMENDATION: Routine screening mammogram of both breasts at age 41. Manage patient on a clinical basis.
== END | disposition home or self-care (01) ==
LOC: RADMAMWWP 13:15
PROVIDERS: ATTEND Obstetrics & Gynecology
DX: Z12.31 Encounter for screening mammogram for malignant neoplasm of breast (principal)
CPT/HCPCS: 77067

== ENCOUNTER 2019-04-05 19:07 | Emergency (ER) | payer OTHER ==
[2019-04-05 19:33] VITALS: BP 140/72; PULSE 72; RESP 18; TEMP 98.4
--- NOTE | 2019-04-05 20:43 | ED ---
General Adult HPI - General Chief complaint: Skin/Abscess/Foreign Body Stated complaint: rash on back of head/neck Time Seen by Provider: 04/05/19 20:08 Source: patient, RN notes reviewed, old records reviewed Mode of arrival: ambulatory Limitations: no limitations - History of Present Illness Initial comments: 39-year-old female patient past medical history of tubal ligation for ED with rash. Patient reports that approximately one week ago she dyed her hair black. She then developed a pruritic rash on her scalp. This rashes erythematous and mildly papular. No ulcerations or discharge. Patient does not have this rationing her also her body. Patient denies any systemic complaints. Patient denies any facial swelling denies any swelling of mouth or lips. Systemic: Pt denies fatigue, myalgia, fever/chills. Pt denies weakness, night sweats, weight loss. Neuro: Pt denies headache, visual disturbances, syncope or pre-syncope. HEENT: Pt denies ocular discharge or irritation, otalgia, rhinorrhea, pharyngitis or notable lymphadenopathy. Cardiopulmonary: Pt denies chest pain, SOB, heart palpitations, dyspnea on exertion. Abdominal/GI: Pt denies abdominal pain, n/v/d. : Pt denies dysuria, burning w/ urination, frequency/urgency. Denies new onset urinary or bowel incontinence. MSK: Pt denies myalgia, loss of strength or function in extremities. Neuro: Pt denies new onset weakness, paresthesias. - Related Data Home Medications Medication Instructions Recorded Confirmed Ibuprofen [Motrin] 800 mg PO Q8HR PRN 07/24/14 04/05/19 Butalb/APAP/Caff 50-325-40Mg 1 tab PO DAILY PRN 04/05/19 04/05/19 [Fioricet 50-325-40] SUMAtriptan SUCCINATE [Imitrex] 100 mg PO DAILY PRN 04/05/19 04/05/19 Previous Rx's Medication Instructions Recorded diphenhydrAMINE [Benadryl] 1 - 2 tab PO Q6HR PRN #30 capsule 04/05/19 predniSONE 50 mg PO DAILY #5 tab 04/05/19 Allergies Allergy/AdvReac Type Severity Reaction Status Date / Time No Known Allergies Allergy Verified 04/05/19 20:30 Review of Systems ROS Statement: Those systems with pertinent positive or pertinent negative responses have been documented in the HPI. ROS Other: All systems not noted in ROS Statement are negative. Past Medical History Past Medical History: No Reported History Additional Past Medical History / Comment(s): migraines, skin lesion behind left ear, hx anemia, History of Any Multi-Drug Resistant Organisms: None Reported Past Surgical History: Section, Tonsillectomy Additional Past Surgical History / Comment(s): C/S x 3, Past Anesthesia/Blood Transfusion Reactions: No Reported Reaction Past Psychological History: No Psychological Hx Reported Smoking Status: Current every day smoker Past Alcohol Use History: Occasional Past Drug Use History: None Reported - Past Family History Mother Family Medical History: No Reported History General Exam - General Exam Comments Initial Comments: Constitutional: NAD, AOX3, Pt has pleasant affect. HEENT: NC/AT, trachea midline, neck supple, no lymphadenopathy. Posterior pharynx non erythematous, without exudates. External ears appear normal, without discharge. Mucous membranes moist. Eyes PERRLA, EOM intact. There is no scleral icterus. No pallor noted. Cardiopulmonary: RRR, no murmurs, rubs or gallops, no JVD noted. Lungs CTAB in anterior and posterior moise. No peripheral edema. Abdominal exam: Abdomen soft and non-distended. Abdomen non-tender to palpation in all 4 quadrants. Bowel sounds active in LLQ. No hepatosplenomegaly. No ecchymosis Neuro: CN II-XII grossly intact. No nuchal rigidity. MSK: No posterior calf tenderness bilaterally, homans sign negative bilaterally. Posterior tibialis and radial pulse +2 bilaterally. Sensation intact in upper and lower extremities. Full active ROM in upper and lower extremities, 5/5 stregnth. Derm: Pruritic papular rash noted on scalp. His palms and soles, no other rash noted. Limitations: no limitations Course Vital Signs 04/05/19 19:29 Temperature 98.4 F Pulse Rate 72 Respiratory 18 Rate Blood Pressure 140/72 O2 Sat by Pulse 98 Oximetry Medical Decision Making - Medical Decision Making 39-year-old female patient past medical history of tubal ligation for ED with rash. Patient reports that approximately one week ago she dyed her hair black. She then developed a pruritic rash on her scalp. This rashes erythematous and mildly papular. No ulcerations or discharge. Patient does not have this rationing her also her body. Patient denies any systemic complaints. Patient denies any facial swelling denies any swelling of mouth or lips. Pt VSS, afebrile. Physical exam displayed: Pruritic papular rash noted on scalp. His palms and soles, no other rash noted. Patient will be discharged with Benadryl and steroids. Patient to follow up with primary care provider in 1-2 days. Patient return to ER if condition worsens in any way. Case discussed with Dr. Szymanski. Disposition Clinical Impression: Rash Disposition: HOME SELF-CARE Condition: Stable Instructions (If sedation given, give patient instructions): Acute Rash (ED) Additional Instructions: Patient to adhere to previously discussed treatment plan and will take medication(s) as directed. Patient to follow up with PCP in 1-2 days. Patient to return to ED if symptoms do not improve. Take medication as directed. Follow-up with the primary-care provider in 1-2 days. Return to ER if condition worsens. Prescriptions: diphenhydrAMINE [Benadryl] 1 - 2 tab PO Q6HR PRN #30 capsule PRN Reason: Allergic Reaction predniSONE 50 mg PO DAILY #5 tab Is patient prescribed a controlled substance at d/c from ED?: No Referrals: Bossman Dunn MD [Primary Care Provider] - 1-2 days
== END 2019-04-05 20:51 | disposition home or self-care (01) ==
LOC: EC 19:07
DX: R21 Rash and other nonspecific skin eruption (principal); G43.909 Migraine, unspecified, not intractable, without status migrainosus; Z98.51 Tubal ligation status; F17.200 Nicotine dependence, unspecified, uncomplicated
CPT/HCPCS: 99283

== ENCOUNTER → 2019-07-26 | Outpatient (CLI) | payer OTHER ==
--- NOTE | 2019-07-26 21:44 | MR ---
EXAMINATION TYPE: MR angio head wo con DATE OF EXAM: 07/26/2019 COMPARISON: NONE HISTORY: Headache / Family history of aneurysm TECHNIQUE: Utilizing 3-D [id number] intracranial MRA of the [place] of [place] was performed. FINDINGS: The vertebrobasilar and carotid systems are patent. Vertebral arteries are symmetric in size. Change s of chronic sinusitis noted. There is no sizable aneurysm or vascular malformation. IMPRESSION: 1. No evidence of vascular malformation or sizable aneurysm. 2. Correlate for chronic sinusitis.
== END | disposition home or self-care (01) ==
LOC: RADMRIMAIN 21:09
PROVIDERS: ATTEND Family Medicine
DX: R51 Headache (principal); Z82.49 Family history of ischemic heart disease and other diseases of the circulatory system
CPT/HCPCS: 70544

== ENCOUNTER → 2019-07-29 | Outpatient (CLI) | payer OTHER ==
--- NOTE | 2019-07-29 15:43 | US ---
EXAMINATION TYPE: US pelvis complete transvag DATE OF EXAM: 07/29/2019 COMPARISON: US 2010 CLINICAL HISTORY: N83.209 Unspecified ovarian cyst. History of ovarian cysts, irregular cycles that l ast 1 month at a time, 6, para 4, miscarriage 2, history of 3 c-sections, tubal ligation and uterine ablation. TECHNIQUE: . Transabdominal sonographic images of the pelvis were acquired. Transvaginal sonographi c images were medically necessary to better assess the following anatomy: ovaries and endometrium Date of LMP: 1 month ago EXAM MEASUREMENTS: Uterus: 7.5 x 4.0 x 4.2 cm Endometrial Stripe: 0.9 cm Right Ovary: 3.1 x 1.5 x 1.5 cm Left Ovary: 3.9 x 1.8 x 1.9 cm 1. Uterus: anteverted, multiple nabothian cysts, heterogeneous, 2.5 x 2.5 x 2.8cm probable fibroid l eft fundus 2. Endometrium: appears wnl as seen 3. Right Ovary: wnl 4. Left Ovary: 1.7 x 1.4 x 1.9cm complex lesion, possible hemorrhagic cyst. 5. Bilateral Adnexa: wnl 6. Posterior cul-de-sac: small amount of free fluid IMPRESSION: 1. Markedly heterogenous uterus with at least one distinct lesion, likely intramural leiomyoma measur ing 2.8 cm. Other smaller noncircumscribed leiomyomas are suspected. 2. Endometrium is thickened for a patient status post ablation as this measures 0.9 cm. 3. Complex 1.9 cm left ovarian lesion and may represent a hemorrhagic cyst. Follow-up ultrasound coul d be performed in 3 menstrual cycles to ensure resolution.
[2019-07-29 16:10] LABS: Basophils # (A) 0.1 k/uL (0-0.2); Basophils % (A) 1 %; Eosinophils # (A) 0.3 k/uL (0-0.7); Eosinophils % (A) 5 %; HCT 40.4 % (34.0-46.0); HGB 13.3 gm/dL (11.4-16.0); Lymphocytes % (A) 47 %; MCH 30.6 pg (25.0-35.0); MCHC 32.9 g/dL (31.0-37.0); MCV 92.8 fL (80.0-100.0); Mean Platelet Volume 8.3; Monocytes # (A) 0.4 k/uL (0-1.0); Monocytes % (A) 6 %; Neutrophils # (A) 2.4 k/uL (1.3-7.7); Neutrophils % (A) 38 %; Platelet Count 256 k/uL (150-450); RBC 4.36 m/uL (3.80-5.40); RDW 13.9 % (11.5-15.5); WBC 6.3 k/uL (3.8-10.6)
[2019-07-29 23:48] LABS: Alpha Fetoprotein, Tumor Mkr 4.3 ng/mL (0.0-7.9); Carcinoembryonic Antigen 0.7 ng/mL (0.0-4.9)
[2019-07-30 00:17] LABS: Cancer Antigen 125 11.6 U/mL (0.0-30.1)
== END | disposition home or self-care (01) ==
LOC: RADUSWWP 14:36
PROVIDERS: ATTEND Obstetrics & Gynecology
DX: N83.8 Other noninflammatory disorders of ovary, fallopian tube and broad ligament (principal)
CPT/HCPCS: 36415; 76830; 76856; 82105; 82378; 83520; 83615; 85025; 86304; 86336

== ENCOUNTER 2019-12-05 19:56 | Emergency (ER) | payer OTHER ==
[2019-12-05 19:59] VITALS: BP 135/87; PULSE 76; RESP 20; TEMP 98.1
[2019-12-05] MEDS ORDERED: predniSONE 50 MG TAB PO STA (20:05)
--- NOTE | 2019-12-05 20:08 | ED ---
Skin/Abscess/FB HPI - General Chief complaint: Skin/Abscess/Foreign Body Stated complaint: Rash Time Seen by Provider: 12/05/19 20:01 Source: patient Mode of arrival: ambulatory Limitations: no limitations - History of Present Illness Initial comments: 39-year-old female patient presents to the emergency department today for evaluation of rash to the right side of her chest. Patient states that the rash has been present for the last 2 weeks. States that it does itch. Denies any drainage or blistering of the rash. States that she has had a similar type rash in the past which was cleared with this oral steroids. She states she has been applying hydrocortisone cream which has improved the itching and causes the rash to become party planner in color. States that she dyed her hair couple of days ago and noticed that the lymph nodes in her neck have been more swollen. States that she also has a scratchy throat and nasal congestion. She denies any fever or chills. Denies nausea or vomiting. Patient denies any recent shortness breath, chest pain, abdominal pain, nausea, vomiting, diarrhea, constipation, back pain, numbness, tingling, dizziness, weakness, hematuria, dysuria, urinary urgency, urinary frequency, headache, visual changes, or any other complaints. - Related Data Home Medications Medication Instructions Recorded Confirmed Ibuprofen [Motrin] 800 mg PO Q8HR PRN 07/24/14 04/05/19 Butalb/APAP/Caff 50-325-40Mg 1 tab PO DAILY PRN 04/05/19 04/05/19 [Fioricet 50-325-40] SUMAtriptan SUCCINATE [Imitrex] 100 mg PO DAILY PRN 04/05/19 04/05/19 Previous Rx's Medication Instructions Recorded diphenhydrAMINE [Benadryl] 1 - 2 tab PO Q6HR PRN #30 capsule 04/05/19 predniSONE 50 mg PO DAILY #5 tab 04/05/19 predniSONE 50 mg PO DAILY #5 tablet 12/05/19 Allergies Allergy/AdvReac Type Severity Reaction Status Date / Time No Known Allergies Allergy Verified 12/05/19 20:00 Review of Systems ROS Statement: Those systems with pertinent positive or pertinent negative responses have been documented in the HPI. ROS Other: All systems not noted in ROS Statement are negative. Past Medical History Past Medical History: No Reported History Additional Past Medical History / Comment(s): migraines, skin lesion behind left ear, hx anemia, History of Any Multi-Drug Resistant Organisms: None Reported Past Surgical History: Section, Tonsillectomy Additional Past Surgical History / Comment(s): C/S x 3, Past Anesthesia/Blood Transfusion Reactions: No Reported Reaction Past Psychological History: No Psychological Hx Reported Smoking Status: Current every day smoker Past Alcohol Use History: Occasional Past Drug Use History: None Reported - Past Family History Mother Family Medical History: No Reported History General Exam Limitations: no limitations General appearance: alert, in no apparent distress, other (Social well- developed, well-nourished adult female patient in no acute distress. Vital signs upon presentation are temperature 98.1F, pulse 76, respirations 20, blood pressure 135/87, pulse ox 98% on room air.) Eye exam: Present: normal appearance, PERRL, EOMI. Absent: scleral icterus, conjunctival injection, periorbital swelling ENT exam: Present: normal exam, normal oropharynx, mucous membranes moist Respiratory exam: Present: normal lung sounds bilaterally. Absent: respiratory distress, wheezes, rales, rhonchi, stridor Cardiovascular Exam: Present: regular rate, normal rhythm, normal heart sounds. Absent: systolic murmur, diastolic murmur, rubs, gallop, clicks Skin exam: Present: warm, dry, intact, normal color, rash (Erythematous raised patch to right chest. Non vesicular, non petechial. ) Course Vital Signs 12/05/19 19:58 Temperature 98.1 F Pulse Rate 76 Respiratory 20 Rate Blood Pressure 135/87 O2 Sat by Pulse 98 Oximetry Medical Decision Making - Medical Decision Making 39-year-old female patient presents to the emergency department today for evaluation of rash to the right side of her chest. Physical examination reveals erythematous raised, nonvesicular rash. She describes itching but no pain. She is afebrile. She states that she has had this in the past and was treated successfully with oral steroids. We'll put on prednisone for 5 days. She is instructed to continue applying cortisone cream she is instructed to follow-up with the doctor of podiatric medicine for further evaluation as soon as possible. Return parameters discussed in detail. She verbalizes understanding and agrees this plan. Disposition Clinical Impression: Rash, Lymphadenopathy Disposition: HOME SELF-CARE Condition: Good Instructions (If sedation given, give patient instructions): Lymphadenopathy (ED), Acute Rash (ED) Additional Instructions: Complete steroid prescription in full. Continue applying hydrocortisone. Follow up with the doctor of podiatric medicine for further evaluation of the rash. Return to the emergency department for any new, worsening, or concerning symptoms. Prescriptions: predniSONE 50 mg PO DAILY #5 tablet Is patient prescribed a controlled substance at d/c from ED?: No Referrals: Bossman Dunn MD [Primary Care Provider] - 1-2 days Guerda Shields MD [STAFF PHYSICIAN] - 1-2 days Time of Disposition: 20:08
== END 2019-12-05 20:20 | disposition home or self-care (01) ==
LOC: EC 19:56
DX: R21 Rash and other nonspecific skin eruption (principal); R59.0 Localized enlarged lymph nodes; R09.89 Other specified symptoms and signs involving the circulatory and respiratory systems; R09.81 Nasal congestion; F17.200 Nicotine dependence, unspecified, uncomplicated
CPT/HCPCS: 99282; J7512

== ENCOUNTER 2020-04-07 15:22 | Emergency (ER) | payer OTHER ==
[2020-04-07 15:37] VITALS: RESP 18
[2020-04-07] MEDS ORDERED: SODIUM CHLORIDE 0.9% 1,000 ML IV STA (16:24)
[2020-04-07] MEDS ORDERED: ONDANSETRON 4 MG/2 ML VIAL IVP STA (16:24)
[2020-04-07] MEDS ORDERED: SODIUM CHLORIDE 0.9% 500 ML 500 ML IV STA (16:24)
--- NOTE | 2020-04-07 16:46 | ED ---
Nausea/Vomiting/Diarrhea HPI - General Chief complaint: Nausea/Vomiting/Diarrhea Stated complaint: Diarrhea, abd pain, covid symptoms Time Seen by Provider: 04/07/20 16:00 Source: patient Mode of arrival: ambulatory Limitations: no limitations - History of Present Illness Initial comments: 40-year-old female patient presents to the emergency department today for evaluation of abdominal pain and diarrhea. States symptoms haven't present for the last 3 days. States she has upwards of 5 episodes of diarrhea daily. States it is watery diarrhea with no presence of blood. States occasionally she does get nauseous but she has not vomited. States she is having some mild shortness of breath intermittently. She has been exposed to someone who tested positive for COVID-19. She denies any fevers or chills. States the pain is to her lower abdomen is crampy and intermittent. Denies any new back pain. Denies any hematuria, dysuria, urinary frequency, urinary urgency. Patient denies any recent rash, cough, shortness of breath, chest pain, numbness, tingling, dizziness, weakness, headache, visual changes, or any other complaints. - Related Data Home Medications Medication Instructions Recorded Confirmed Ibuprofen [Motrin] 800 mg PO Q8HR PRN 07/24/14 04/05/19 Butalb/APAP/Caff 50-325-40Mg 1 tab PO DAILY PRN 04/05/19 04/05/19 [Fioricet 50-325-40] SUMAtriptan SUCCINATE [Imitrex] 100 mg PO DAILY PRN 04/05/19 04/05/19 Previous Rx's Medication Instructions Recorded RX: predniSONE 50 mg PO DAILY #5 tab 04/05/19 diphenhydrAMINE [Benadryl] 1 - 2 tab PO Q6HR PRN #30 capsule 04/05/19 RX: predniSONE 50 mg PO DAILY #5 tablet 12/05/19 Dicyclomine [Bentyl] 20 mg PO QID #12 tablet 04/07/20 Allergies Allergy/AdvReac Type Severity Reaction Status Date / Time No Known Allergies Allergy Verified 04/07/20 15:37 Review of Systems ROS Statement: Those systems with pertinent positive or pertinent negative responses have been documented in the HPI. ROS Other: All systems not noted in ROS Statement are negative. Past Medical History Past Medical History: No Reported History Additional Past Medical History / Comment(s): migraines, skin lesion behind left ear, hx anemia, History of Any Multi-Drug Resistant Organisms: None Reported Past Surgical History: Section, Tonsillectomy Additional Past Surgical History / Comment(s): C/S x 3, Past Anesthesia/Blood Transfusion Reactions: No Reported Reaction Past Psychological History: No Psychological Hx Reported Smoking Status: Current every day smoker Past Alcohol Use History: Occasional Past Drug Use History: None Reported - Past Family History Mother Family Medical History: No Reported History General Exam Limitations: no limitations General appearance: alert, in no apparent distress, other (Physical well-develo ped, well-nourished adult female patient in no acute distress. Vital signs upon presentation are temperature 98.5F, pulse 64, respirations 18, blood pressure 121/83, pulse ox 98% on room air.) ENT exam: Present: normal exam, normal oropharynx, mucous membranes moist Respiratory exam: Present: normal lung sounds bilaterally. Absent: respiratory distress, wheezes, rales, rhonchi, stridor Cardiovascular Exam: Present: regular rate, normal rhythm, normal heart sounds. Absent: systolic murmur, diastolic murmur, rubs, gallop, clicks GI/Abdominal exam: Present: soft, tenderness (Lower abdominal), normal bowel sounds. Absent: distended, guarding, rebound, rigid Back exam: Present: normal inspection. Absent: CVA tenderness (R), CVA tenderness (L) Neurological exam: Present: alert, oriented X3, CN II-XII intact Psychiatric exam: Present: normal affect, normal mood Skin exam: Present: warm, dry, intact, normal color. Absent: rash Course Vital Signs 04/07/20 15:34 Temperature 98.5 F Pulse Rate 64 Respiratory 18 Rate Blood Pressure 121/83 O2 Sat by Pulse 98 Oximetry Medical Decision Making - Medical Decision Making 40-year-old female patient percents emergency department today for evaluation of diarrhea and abdominal discomfort. Physical examination vital signs nontender abdomen. She is afebrile, vital signs showed no major abnormalities. Symptoms are consistent with viral diarrhea. She will be discharged a prescription for Bentyl. She is instructed to follow-up with her primary care physician for recheck in 1-2 days. Return parameters were discussed in detail. She verbalizes understanding and agrees with this plan. - Lab Data Result diagrams: 04/07/20 16:40 04/07/20 16:40 Lab Results 04/07/20 04/07/20 04/07/20 Range/Units 16:40 16:40 16:40 WBC 6.5 (3.8-10.6) k/uL RBC 4.47 (3.80-5.40) m/uL Hgb 13.8 (11.4-16.0) gm/dL Hct 41.7 (34.0-46.0) % MCV 93.1 (80.0-100.0) fL MCH 30.9 (25.0-35.0) pg MCHC 33.2 (31.0-37.0) g/dL RDW 12.6 (11.5-15.5) % Plt Count 240 (150-450) k/uL Neutrophils % 52 % Lymphocytes % 36 % Monocytes % 4 % Eosinophils % 5 % Basophils % 1 % Neutrophils # 3.4 (1.3-7.7) k/uL Lymphocytes # 2.3 (1.0-4.8) k/uL Monocytes # 0.2 (0-1.0) k/uL Eosinophils # 0.3 (0-0.7) k/uL Basophils # 0.1 (0-0.2) k/uL Sodium 138 (137-145) mmol/L Potassium 4.1 (3.5-5.1) mmol/L Chloride 106 (98-107) mmol/L Carbon Dioxide 25 (22-30) mmol/L Anion Gap 7 mmol/L BUN 11 (7-17) mg/dL Creatinine 0.62 (0.52-1.04) mg/dL Est GFR (CKD-EPI)AfAm >90 (>60 ml/min/1.73 sqM) Est GFR (CKD-EPI)NonAf >90 (>60 ml/min/1.73 sqM) Glucose 111 H (74-99) mg/dL Calcium 9.2 (8.4-10.2) mg/dL Total Bilirubin 0.3 (0.2-1.3) mg/dL AST 20 (14-36) U/L ALT 11 (4-34) U/L Alkaline Phosphatase 47 (38-126) U/L Total Protein 6.7 (6.3-8.2) g/dL Albumin 4.1 (3.5-5.0) g/dL Lipase 133 (23-300) U/L Urine Color Yellow Urine Appearance Clear (Clear) Urine pH 6.0 (5.0-8.0) Ur Specific [place] 1.030 (1.001-1.035) Urine Protein Trace H (Negative) Urine Glucose (UA) Negative (Negative) Urine Ketones Negative (Negative) Urine Blood Negative (Negative) Urine Nitrite Negative (Negative) Urine Bilirubin Negative (Negative) Urine Urobilinogen 2.0 (<2.0) mg/dL Ur Leukocyte Esterase Negative (Negative) Coronavirus (PCR) (Not Detectd) 04/07/20 Range/Units 16:52 WBC (3.8-10.6) k/uL RBC (3.80-5.40) m/uL Hgb (11.4-16.0) gm/dL Hct (34.0-46.0) % MCV (80.0-100.0) fL MCH (25.0-35.0) pg MCHC (31.0-37.0) g/dL RDW (11.5-15.5) % Plt Count (150-450) k/uL Neutrophils % % Lymphocytes % % Monocytes % % Eosinophils % % Basophils % % Neutrophils # (1.3-7.7) k/uL Lymphocytes # (1.0-4.8) k/uL Monocytes # (0-1.0) k/uL Eosinophils # (0-0.7) k/uL Basophils # (0-0.2) k/uL Sodium (137-145) mmol/L Potassium (3.5-5.1) mmol/L Chloride (98-107) mmol/L Carbon Dioxide (22-30) mmol/L Anion Gap mmol/L BUN (7-17) mg/dL Creatinine (0.52-1.04) mg/dL Est GFR (CKD-EPI)AfAm (>60 ml/min/1.73 sqM) Est GFR (CKD-EPI)NonAf (>60 ml/min/1.73 sqM) Glucose (74-99) mg/dL Calcium (8.4-10.2) mg/dL Total Bilirubin (0.2-1.3) mg/dL AST (14-36) U/L ALT (4-34) U/L Alkaline Phosphatase (38-126) U/L Total Protein (6.3-8.2) g/dL Albumin (3.5-5.0) g/dL Lipase (23-300) U/L Urine Color Urine Appearance (Clear) Urine pH (5.0-8.0) Ur Specific [place] (1.001-1.035) Urine Protein (Negative) Urine Glucose (UA) (Negative) Urine Ketones (Negative) Urine Blood (Negative) Urine Nitrite (Negative) Urine Bilirubin (Negative) Urine Urobilinogen (<2.0) mg/dL Ur Leukocyte Esterase (Negative) Coronavirus (PCR) Not Detected (Not Detectd) - Radiology Data Radiology results: report reviewed, image reviewed Two-view x-ray of the chest is obtained. Report is reviewed in its entirety. Impression by Dr. Dempsey shows no acute cardio pulmonary process per Disposition Clinical Impression: Diarrhea, Abdominal pain Disposition: HOME SELF-CARE Condition: Good Instructions (If sedation given, give patient instructions): Abdominal Pain (ED), Acute Diarrhea (ED) Additional Instructions: Start with clear liquid diet and advance as tolerated. Increase fluids, especial ly water and/or sports drinks if you diarrhea continues. Follow up with your primary care physician for recheck in 1-2 days. Return to the emergency department for any new, worsening, or concerning symptoms. Prescriptions: Dicyclomine [Bentyl] 20 mg PO QID #12 tablet Is patient prescribed a controlled substance at d/c from ED?: No Referrals: Bossman Dunn MD [Primary Care Provider] - 1-2 days Time of Disposition: 17:31
[2020-04-07 16:59] LABS: Basophils # (A) 0.1 k/uL (0-0.2); Basophils % (A) 1 %; Eosinophils # (A) 0.3 k/uL (0-0.7); Eosinophils % (A) 5 %; HCT 41.7 % (34.0-46.0); HGB 13.8 gm/dL (11.4-16.0); Lymphocytes # (A) 2.3 k/uL (1.0-4.8); Lymphocytes % (A) 36 %; MCH 30.9 pg (25.0-35.0); MCHC 33.2 g/dL (31.0-37.0); MCV 93.1 fL (80.0-100.0); Mean Platelet Volume 8.3; Monocytes # (A) 0.2 k/uL (0-1.0); Monocytes % (A) 4 %; Neutrophils # (A) 3.4 k/uL (1.3-7.7); Neutrophils % (A) 52 %; Platelet Count 240 k/uL (150-450); RBC 4.47 m/uL (3.80-5.40); RDW 12.6 % (11.5-15.5); WBC 6.5 k/uL (3.8-10.6)
[2020-04-07 17:01] LABS: Appearance,Urine Clear (Clear); Bilirubin,Urine Negative (Negative); Blood,Urine Negative (Negative); Color,Urine Yellow; Glucose,Urine (UA) Negative (Negative); Ketones,Urine Negative (Negative); Leukocyte Esterase,Urine Negative (Negative); Nitrite,Urine Negative (Negative); Protein,Urine Trace (Negative)
[2020-04-07 17:10] LABS: ALT 11 U/L (4-34); AST 20 U/L (14-36); African American GFR (CKD) >90 (>60 ml/min/1.73 sqM); Albumin 4.1 g/dL (3.5-5.0); Alkaline Phosphatase 47 U/L (38-126); Anion Gap 7 mmol/L; Blood Urea Nitrogen 11 mg/dL (7-17); Calcium 9.2 mg/dL (8.4-10.2); Carbon Dioxide 25 mmol/L (22-30); Chloride 106 mmol/L (98-107); Glucose 111 mg/dL (74-99); Non-African American GFR(CKD) >90 (>60 ml/min/1.73 sqM); Potassium 4.1 mmol/L (3.5-5.1); Sodium 138 mmol/L (137-145); Total Bilirubin 0.3 mg/dL (0.2-1.3); Total Protein 6.7 g/dL (6.3-8.2)
--- NOTE | 2020-04-07 17:16 | XR ---
EXAMINATION TYPE: XR chest 2V DATE OF EXAM: 04/07/2020 COMPARISON: Prior chest x-ray 07/24/2014 HISTORY: Pain and diarrhea TECHNIQUE: Frontal and lateral views of the chest are obtained. FINDINGS: There is no focal air space opacity, pleural effusion, or pneumothorax seen. The cardiac silhouette size is within normal limits. The osseous structures are intact. IMPRESSION: No acute cardiopulmonary process.
[2020-04-07 18:03] VITALS: BP 121/85; PULSE 78; TEMP 97.8
== END 2020-04-07 18:02 | disposition home or self-care (01) ==
LOC: EC 15:22
DX: R10.30 Lower abdominal pain, unspecified (principal); R19.7 Diarrhea, unspecified; R06.02 Shortness of breath; R11.0 Nausea; F17.200 Nicotine dependence, unspecified, uncomplicated; Z20.828 Contact with and (suspected) exposure to other viral communicable diseases
CPT/HCPCS: 99284 ×2; 96374 ×2; 96361 ×2; 36415; 80053; 83690; 85025; 81003; 87635; 71046; J2405

== ENCOUNTER 2021-02-22 07:41 | Emergency (ER) | payer OTHER ==
[2021-02-22 07:46] VITALS: BP 125/87; PULSE 75; RESP 18; TEMP 97.9
[2021-02-22] MEDS ORDERED: ACET/COD 300 MG/30 MG STARTER PACK 6 TAB BTL PO STA (07:51)
[2021-02-22] MEDS ORDERED: HYDROcodone/APAP 5-325MG 1 EACH TAB PO STA (07:51)
--- NOTE | 2021-02-22 07:53 | ED ---
ENT HPI - General Chief complaint: Dental/Oral Stated complaint: Tooth pain Time Seen by Provider: 02/22/21 07:44 Source: patient, RN notes reviewed Mode of arrival: ambulatory Limitations: no limitations - History of Present Illness Initial comments: 40-year-old female presents emergency Department chief complaint abdominal pain. Patient states she's had some discomfort last 2 months states last in the last couple days she's had severe upper pain. Patient states she try to get into her dentist but states that she cannot dental [place]. Patient denies any fevers or chills. Patient denies any difficulty swallowing. No headache no dizziness. Patient offers no complaints. - Related Data Home Medications Medication Instructions Recorded Confirmed Ibuprofen [Motrin] 800 mg PO Q8HR PRN 07/24/14 04/05/19 Butalb/APAP/Caff 50-325-40Mg 1 tab PO DAILY PRN 04/05/19 04/05/19 [Fioricet 50-325-40] SUMAtriptan SUCCINATE [Imitrex] 100 mg PO DAILY PRN 04/05/19 04/05/19 Previous Rx's Medication Instructions Recorded diphenhydrAMINE [Benadryl] 1 - 2 tab PO Q6HR PRN #30 capsule 04/05/19 predniSONE 50 mg PO DAILY #5 tab 04/05/19 predniSONE 50 mg PO DAILY #5 tablet 12/05/19 Dicyclomine [Bentyl] 20 mg PO QID #12 tablet 04/07/20 Clindamycin HCl 300 mg PO Q6HR #40 cap 02/22/21 Ibuprofen [Motrin] 800 mg PO Q6HR #20 tab 02/22/21 Allergies Allergy/AdvReac Type Severity Reaction Status Date / Time No Known Allergies Allergy Verified 02/22/21 07:46 Review of Systems ROS Statement: Those systems with pertinent positive or pertinent negative responses have been documented in the HPI. ROS Other: All systems not noted in ROS Statement are negative. Past Medical History Past Medical History: No Reported History Additional Past Medical History / Comment(s): migraines, skin lesion behind left ear, hx anemia, History of Any Multi-Drug Resistant Organisms: None Reported Past Surgical History: Section, Tonsillectomy Additional Past Surgical History / Comment(s): C/S x 3, Past Anesthesia/Blood Transfusion Reactions: No Reported Reaction Past Psychological History: No Psychological Hx Reported Smoking Status: Current every day smoker Past Alcohol Use History: Occasional Past Drug Use History: None Reported - Past Family History Mother Family Medical History: No Reported History General Exam Limitations: no limitations General appearance: alert, in no apparent distress Head exam: Present: atraumatic, normocephalic, normal inspection Eye exam: Present: normal appearance, PERRL, EOMI. Absent: scleral icterus, conjunctival injection, periorbital swelling ENT exam: Present: mucous membranes moist, TM's normal bilaterally, normal external ear exam. Absent: normal oropharynx (Dental caries left upper, drainable abscess minimal erythema.) Neck exam: Present: normal inspection, full ROM. Absent: tenderness, meningismus, lymphadenopathy Respiratory exam: Present: normal lung sounds bilaterally. Absent: respiratory distress, wheezes, rales, rhonchi, stridor Cardiovascular Exam: Present: regular rate, normal rhythm, normal heart sounds. Absent: systolic murmur, diastolic murmur, rubs, gallop, clicks Course Vital Signs 02/22/21 07:42 Temperature 97.9 F Pulse Rate 75 Respiratory 18 Rate Blood Pressure 125/87 O2 Sat by Pulse 97 Oximetry Medical Decision Making - Medical Decision Making Patient is advised follow-up with her dentist patient starting antibiotics given pain control return parameters were discussed. Disposition Clinical Impression: Dental caries, Toothache Disposition: HOME SELF-CARE Condition: Stable Instructions (If sedation given, give patient instructions): Toothache (ED) Additional Instructions: Please return to the Emergency Department if symptoms worsen or any other concerns. Prescriptions: Clindamycin HCl 300 mg PO Q6HR #40 cap Ibuprofen [Motrin] 800 mg PO Q6HR #20 tab Is patient prescribed a controlled substance at d/c from ED?: No Referrals: Bossman Dunn MD [Primary Care Provider] - 1-2 days Time of Disposition: 07:53
== END 2021-02-22 08:08 | disposition home or self-care (01) ==
LOC: EC 07:41
DX: K02.9 Dental caries, unspecified (principal); F17.200 Nicotine dependence, unspecified, uncomplicated
CPT/HCPCS: 99282

== ENCOUNTER 2021-05-28 14:38 | Emergency (ER) | payer OTHER ==
[2021-05-28 15:01] VITALS: RESP 18
--- NOTE | 2021-05-28 15:52 | XR ---
EXAMINATION TYPE: XR femur RT DATE OF EXAM: 05/28/2021 CLINICAL HISTORY: Foreign body TECHNIQUE: Two views of the right femur are obtained. COMPARISON: None FINDINGS: There is no acute fracture or dislocation seen in the right femur. The right hip and knee joints appear within normal limits. There is a radiopaque foreign body at the medial posterior soft tissues of the right mid thigh measuring approximately 2 cm. IMPRESSION: 1. No evidence of fracture or dislocation of the right femur. 2. 2 cm radiopaque foreign body at the medial posterior soft tissues at the right mid thigh.
[2021-05-28] MEDS ORDERED: LIDOCAINE 1% INJ 10MG/ML (20 ML MDV) SQ ONE (17:56)
--- NOTE | 2021-05-28 18:11 | ED ---
Wound/Laceration HPI - General Chief Complaint: Wound/Laceration Stated Complaint: L leg injury Time Seen by Provider: 05/28/21 17:32 Source: patient, family Mode of arrival: wheelchair Limitations: no limitations - History of Present Illness Initial Comments: 41-year-old female presents to emergency department with a chief complaint of a right leg injury. Patient reports this occurred about one hour prior to arrival while her son was mowing the grass, she felt a foreign body go into her right eye. Patient reports pain with any movement of her leg. Also reports of bleeding from laceration site. States her tetanus is up-to-date. Reports the pain is sharp in nature with any movement. - Related Data Home Medications Medication Instructions Recorded Confirmed Ibuprofen [Motrin] 800 mg PO Q8HR PRN 07/24/14 04/05/19 Butalb/APAP/Caff 50-325-40Mg 1 tab PO DAILY PRN 04/05/19 04/05/19 [Fioricet 50-325-40] SUMAtriptan SUCCINATE [Imitrex] 100 mg PO DAILY PRN 04/05/19 04/05/19 Previous Rx's Medication Instructions Recorded diphenhydrAMINE [Benadryl] 1 - 2 tab PO Q6HR PRN #30 capsule 04/05/19 predniSONE 50 mg PO DAILY #5 tab 04/05/19 predniSONE 50 mg PO DAILY #5 tablet 12/05/19 Dicyclomine [Bentyl] 20 mg PO QID #12 tablet 04/07/20 Clindamycin HCl 300 mg PO Q6HR #40 cap 02/22/21 Ibuprofen [Motrin] 800 mg PO Q6HR #20 tab 02/22/21 Cephalexin [Keflex] 500 mg PO Q8HR 1 Days #21 cap 05/28/21 Allergies Allergy/AdvReac Type Severity Reaction Status Date / Time No Known Allergies Allergy Verified 05/28/21 14:59 Review of Systems ROS Statement: Those systems with pertinent positive or pertinent negative responses have been documented in the HPI. ROS Other: All systems not noted in ROS Statement are negative. Past Medical History Past Medical History: No Reported History Additional Past Medical History / Comment(s): migraines, skin lesion behind left ear, hx anemia, History of Any Multi-Drug Resistant Organisms: None Reported Past Surgical History: Section, Tonsillectomy Additional Past Surgical History / Comment(s): C/S x 3, Past Anesthesia/Blood Transfusion Reactions: No Reported Reaction Past Psychological History: No Psychological Hx Reported Smoking Status: Current every day smoker Past Alcohol Use History: Occasional Past Drug Use History: None Reported - Past Family History Mother Family Medical History: No Reported History General Exam Limitations: no limitations General appearance: alert, in no apparent distress Head exam: Present: atraumatic, normocephalic, normal inspection Eye exam: Present: normal appearance, PERRL, EOMI Pupils: Present: normal accommodation ENT exam: Present: normal exam, normal oropharynx, mucous membranes moist Neck exam: Present: normal inspection, full ROM. Absent: tenderness, lymphadenopathy Respiratory exam: Present: normal lung sounds bilaterally. Absent: respiratory distress, wheezes Cardiovascular Exam: Present: regular rate, normal rhythm, normal heart sounds Extremities exam: Present: full ROM, normal capillary refill. Absent: normal inspection (Puncture wound noted on the medial right thigh. Palpable foreign body), tenderness Back exam: Present: normal inspection, full ROM. Absent: tenderness Neurological exam: Present: alert, oriented X3 Psychiatric exam: Present: normal affect, normal mood Skin exam: Present: warm, dry, intact, normal color Course Vital Signs 05/28/21 14:59 Temperature 97.8 F Pulse Rate 93 Respiratory 18 Rate Blood Pressure 115/75 O2 Sat by Pulse 98 Oximetry Procedures - Forgein Body Removal Soft Tissue Consent Obtained: verbal consent Site: lower extremity Anesthetic Used: lidocaine 1% Amount (mLs): 10 Foreign Body Suspected: Metal Foreign Body Removed: yes Foreign Body Removal Technique: Irrigation Patient Tolerated Procedure: well, no complications - Laceration Laceration #1 Consent Obtained: verbal consent Indication: laceration Site: lower extremity Size (cm): 2 Description: linear, clean, foreign body Depth: simple, single layer Sedation/Analgesia: none Anesthetic Used: lidocaine 1% Anesthesia Technique: local infiltration Amount (mls): 10 Pre-repair: wound explored, irrigated extensively, deep structures intact, foreign body removed Type of Sutures: nylon Size of Sutures: 4-0 Number of Sutures: 3 Technique: simple, interrupted Patient Tolerated Procedure: well, no complications Medical Decision Making - Medical Decision Making 41-year-old female presents to emergency department with chief complaint of injury to right leg. Physical examination, palpable foreign body. X-ray showed a 2 cm foreign body on the right thigh. Local anesthesia with lidocaine. Wound was explored and I was able to remove the foreign body which appeared to be metallic in nature. Her tetanus is up-to-date. She will be started on Keflex. Return primers were thoroughly discussed the patient is understandable and agreeable. Case discussed with Dr. Guillermo. Disposition Clinical Impression: Laceration, Soft tissues foreign body Disposition: HOME SELF-CARE Condition: Stable Instructions (If sedation given, give patient instructions): Care For Your Stitches (DC), Laceration (DC) Additional Instructions: Please return to the emergency room in 8-10 days to have sutures removed. Please watch for any signs of infection which may include increased pain, swelling, redness, fever or chills. Please return to emergency room for any signs of infection do occur. Please use clean soap and water over the area to prevent scabbing over your stitches. Please leave wound covered for the first 24-48 hours and then leave wound open to air. Please return to the emergency room for any other concerns. Is patient prescribed a controlled substance at d/c from ED?: No Referrals: Bossman Dunn MD [Primary Care Provider] - 1-2 days Time of Disposition: 18:10
[2021-05-28 18:12] VITALS: BP 107/78; PULSE 80; TEMP 98.1
== END 2021-05-28 18:11 | disposition home or self-care (01) ==
LOC: EC 14:38
DX: S71.121A Laceration with foreign body, right thigh, initial encounter (principal); F17.200 Nicotine dependence, unspecified, uncomplicated; G43.909 Migraine, unspecified, not intractable, without status migrainosus; X58.XXXA Exposure to other specified factors, initial encounter; Y93.H2 Activity, gardening and landscaping
CPT/HCPCS: 73552; 99283; 12031; J2001

== ENCOUNTER 2021-05-30 15:03 | Emergency (ER) | payer OTHER ==
[2021-05-30 15:08] VITALS: BP 127/80; PULSE 94; RESP 16; TEMP 98.1
[2021-05-30] MEDS ORDERED: DIPH,PERTUS(ACELL)TETVAC-LF 0.5 ML VIAL IM ONE (15:14)
--- NOTE | 2021-05-30 15:46 | ED ---
Recheck HPI - General Chief Complaint: Recheck/Abnormal Lab/Rx Stated Complaint: Revisit,Needs tetanus shot Time Seen by Provider: 05/30/21 15:12 Source: patient, RN notes reviewed Mode of arrival: ambulatory Limitations: no limitations - History of Present Illness Initial Comments: Patient is a 41-year-old female that presents to the emergency department to update her tetanus vaccine. She notes that her primary care center here as they did not have any in stock at their office. Patient was seen several days ago emergency department for a laceration that was repaired. She notes that the thing that caused laceration was a 20 car that got shot out by the lawnmower. She was in no apparent distress or pain. She notes that she just picked up her antibiotics today and just started taking them. She denied any other complaints or issues at this time. - Related Data Home Medications Medication Instructions Recorded Confirmed Ibuprofen [Motrin] 800 mg PO Q8HR PRN 07/24/14 04/05/19 Butalb/APAP/Caff 50-325-40Mg 1 tab PO DAILY PRN 04/05/19 04/05/19 [Fioricet 50-325-40] SUMAtriptan SUCCINATE [Imitrex] 100 mg PO DAILY PRN 04/05/19 04/05/19 Previous Rx's Medication Instructions Recorded diphenhydrAMINE [Benadryl] 1 - 2 tab PO Q6HR PRN #30 capsule 04/05/19 predniSONE 50 mg PO DAILY #5 tab 04/05/19 predniSONE 50 mg PO DAILY #5 tablet 12/05/19 Dicyclomine [Bentyl] 20 mg PO QID #12 tablet 04/07/20 Clindamycin HCl 300 mg PO Q6HR #40 cap 02/22/21 Ibuprofen [Motrin] 800 mg PO Q6HR #20 tab 02/22/21 Cephalexin [Keflex] 500 mg PO Q8HR 1 Days #21 cap 05/28/21 Allergies Allergy/AdvReac Type Severity Reaction Status Date / Time No Known Allergies Allergy Verified 05/30/21 15:08 Review of Systems ROS Statement: Those systems with pertinent positive or pertinent negative responses have been documented in the HPI. ROS Other: All systems not noted in ROS Statement are negative. Past Medical History Past Medical History: No Reported History Additional Past Medical History / Comment(s): migraines, skin lesion behind left ear, hx anemia, History of Any Multi-Drug Resistant Organisms: None Reported Past Surgical History: Section, Tonsillectomy Additional Past Surgical History / Comment(s): C/S x 3, Past Anesthesia/Blood Transfusion Reactions: No Reported Reaction Past Psychological History: No Psychological Hx Reported Smoking Status: Current every day smoker Past Alcohol Use History: Occasional Past Drug Use History: None Reported - Past Family History Mother Family Medical History: No Reported History General Exam Limitations: no limitations General appearance: alert, in no apparent distress Head exam: Present: atraumatic, normocephalic, normal inspection Eye exam: Present: normal appearance, PERRL, EOMI. Absent: scleral icterus, conjunctival injection, periorbital swelling Neck exam: Present: normal inspection Respiratory exam: Present: normal lung sounds bilaterally. Absent: respiratory distress, wheezes, rales, rhonchi, stridor Cardiovascular Exam: Present: regular rate, normal rhythm, normal heart sounds. Absent: systolic murmur, diastolic murmur, rubs, gallop, clicks Extremities exam: Present: normal inspection, full ROM, normal capillary refill. Absent: tenderness, pedal edema, joint swelling, calf tenderness Neurological exam: Present: alert, oriented X3 Psychiatric exam: Present: normal affect, normal mood Skin exam: Present: warm, dry, intact, normal color, other (Laceration appears to be healing well with no signs or symptoms of infection.). Absent: rash Course Vital Signs 05/30/21 15:05 Temperature 98.1 F Pulse Rate 94 Respiratory 16 Rate Blood Pressure 127/80 O2 Sat by Pulse 97 Oximetry Medical Decision Making - Medical Decision Making 41-year-old female here to get her tetanus vaccine updated. Tetanus vaccination ordered. Case discussed with Dr. Barr, patient discharge home with continued follow-up to primary care. Disposition Clinical Impression: Encounter for vaccination Disposition: HOME SELF-CARE Condition: Stable Instructions (If sedation given, give patient instructions): Diphtheria/Pertussis/Tetanus Vaccine (By injection) Additional Instructions: Please return to the Emergency Department if symptoms worsen or any other concerns. Is patient prescribed a controlled substance at d/c from ED?: No Referrals: Bossman Dunn MD [Primary Care Provider] - 1-2 days Time of Disposition: 15:45
== END 2021-05-30 15:57 | disposition home or self-care (01) ==
LOC: EC 15:03
DX: F17.200 Nicotine dependence, unspecified, uncomplicated (principal); Z23 Encounter for immunization
CPT/HCPCS: 90715; 99282

== ENCOUNTER 2021-06-04 09:14 | Emergency (ER) | payer OTHER ==
[2021-06-04 09:29] VITALS: BP 114/75; PULSE 20; RESP 18; TEMP 98
[2021-06-04] MEDS ORDERED: diphenhydrAMINE 50 MG CAP PO STA (10:04)
[2021-06-04] MEDS ORDERED: methylPREDNISolone SOD SUCCI 125 MG/2 ML VIAL IM ONE (10:04)
--- NOTE | 2021-06-04 10:23 | ED ---
Allergic Reaction HPI - General Chief complaint: Allergic Reaction Stated complaint: Allergic reaction to hair dye Time Seen by Provider: 06/04/21 09:58 Source: patient Mode of arrival: ambulatory Limitations: no limitations - History of Present Illness Initial Comments: Patient is a 41-year-old female presenting to emergency Department with complaints of ALLERGIC reaction to her hair dye 2 days. Patient states she used a new hair dye brand 2 days ago and started noticing some itching and redness. She states today the redness is much worse and started having some swelling of her left eye. She denies any fevers or chills, no trouble breathing, no chest pain. She has tried taking some Benadryl yesterday evening, with mild improvement in her symptoms. She has no further complaints at this time. - Related Data Home Medications Medication Instructions Recorded Confirmed Ibuprofen [Motrin] 800 mg PO Q8HR PRN 07/24/14 04/05/19 Butalb/APAP/Caff 50-325-40Mg 1 tab PO DAILY PRN 04/05/19 04/05/19 [Fioricet 50-325-40] SUMAtriptan SUCCINATE [Imitrex] 100 mg PO DAILY PRN 04/05/19 04/05/19 Previous Rx's Medication Instructions Recorded diphenhydrAMINE [Benadryl] 1 - 2 tab PO Q6HR PRN #30 capsule 04/05/19 predniSONE 50 mg PO DAILY #5 tab 04/05/19 predniSONE 50 mg PO DAILY #5 tablet 12/05/19 Dicyclomine [Bentyl] 20 mg PO QID #12 tablet 04/07/20 Clindamycin HCl 300 mg PO Q6HR #40 cap 02/22/21 Ibuprofen [Motrin] 800 mg PO Q6HR #20 tab 02/22/21 Cephalexin [Keflex] 500 mg PO Q8HR 1 Days #21 cap 05/28/21 diphenhydrAMINE [Benadryl] 50 mg PO QID PRN #20 capsule 06/04/21 predniSONE 50 mg PO DAILY #5 tab 06/04/21 Allergies Allergy/AdvReac Type Severity Reaction Status Date / Time No Known Allergies Allergy Verified 06/04/21 09:29 Review of Systems ROS Statement: Those systems with pertinent positive or pertinent negative responses have been documented in the HPI. ROS Other: All systems not noted in ROS Statement are negative. Past Medical History Past Medical History: No Reported History Additional Past Medical History / Comment(s): migraines, skin lesion behind left ear, hx anemia, History of Any Multi-Drug Resistant Organisms: None Reported Past Surgical History: Section, Tonsillectomy Additional Past Surgical History / Comment(s): C/S x 3, Past Anesthesia/Blood Transfusion Reactions: No Reported Reaction Past Psychological History: No Psychological Hx Reported Smoking Status: Current every day smoker Past Alcohol Use History: Occasional Past Drug Use History: None Reported - Past Family History Mother Family Medical History: No Reported History General Exam - General Exam Comments Initial Comments: GENERAL: Patient is well-developed and well-nourished. Patient is nontoxic and in no acu te distress. HEAD: Atraumatic, normocephalic. Patient has erythematous, patches consistent with an ALLERGIC reaction along her entire scalp. She has pruritic as well. EYES: Pupils equal round and reactive to light, extraocular movements intact, sclera anicteric, conjunctiva are normal. Eyelids were unremarkable. Patient has some very mild swelling noted to the left upper eyelid. ENT: TMs normal, nares patent, oropharynx clear without exudates. Moist mucous membranes. NECK: Normal range of motion, supple without lymphadenopathy or JVD. LUNGS: Unlabored respirations. Breath sounds clear to auscultation bilaterally and equal. No wheezes rales or rhonchi. HEART: Regular rate and rhythm without murmurs, rubs or gallops. ABDOMEN: Soft, nontender, normoactive bowel sounds. No guarding, no rebound. No masses appreciated. MUSCULOSKELETAL: Normal extremities with adequate strength and normal range of motion, no pitting or edema. No clubbing or cyanosis. SKIN: Warm, Dry, normal turgor, no rashes or lesions noted, other than what is noted above. Limitations: no limitations Course Vital Signs 06/04/21 09:27 Temperature 98 F Pulse Rate 20 L Respiratory 18 Rate Blood Pressure 114/75 O2 Sat by Pulse 99 Oximetry Medical Decision Making - Medical Decision Making Patient is a 41-year-old female here with ALLERGIC reaction to hair dye that she used 2 days ago. Her scalp is consistent with ALLERGIC response, erythematous, pruritic. Patient will be given a shot of steroids today, prescription for steroids to start tomorrow. I also give her prescription for some Benadryl. She is stable for discharge. She is a follow-up with her primary care physician. She is in agreement with this plan of care. Discussed with Dr. Lassiter. Disposition Clinical Impression: Allergic reaction to hair dye Disposition: HOME SELF-CARE Condition: Stable Instructions (If sedation given, give patient instructions): Acute Rash (ED) Additional Instructions: Please return to the Emergency Department if symptoms worsen or any other concerns. Take steroids as prescribed starting tomorrow. May take Benadryl for itchiness and irritation every 4-6 hours. Follow-up with your primary care physician. Prescriptions: diphenhydrAMINE [Benadryl] 50 mg PO QID PRN #20 capsule PRN Reason: Itching predniSONE 50 mg PO DAILY #5 tab Is patient prescribed a controlled substance at d/c from ED?: No Referrals: Bossman Dunn MD [Primary Care Provider] - 1-2 days Time of Disposition: 10:23
== END 2021-06-04 10:32 | disposition home or self-care (01) ==
LOC: EC 09:14
DX: H57.89 Other specified disorders of eye and adnexa (principal); T49.4X5A Adverse effect of keratolytics, keratoplastics, and other hair treatment drugs and preparations, initial encounter; F17.200 Nicotine dependence, unspecified, uncomplicated; G43.909 Migraine, unspecified, not intractable, without status migrainosus
CPT/HCPCS: 99283; 96372; J2930

== ENCOUNTER 2024-01-08 11:11 | Emergency (ER) | payer OTHER ==
[2024-01-08 12:02] VITALS: TEMP 98.2
--- NOTE | 2024-01-08 12:33 | XR ---
EXAMINATION TYPE: XR chest 2V DATE OF EXAM: 01/08/2024 COMPARISON: 04/07/2020 HISTORY: Chest pain TECHNIQUE: Frontal and lateral views of the chest are obtained. FINDINGS: There is no focal air space opacity. No evidence for pneumothorax. No pleural effusion. The cardiac silhouette size is within normal limits. The osseous structures are grossly intact. IMPRESSION: 1. No acute cardiopulmonary process.
--- NOTE | 2024-01-08 12:55 | ED ---
General Adult HPI - General Chief complaint: Recheck/Abnormal Lab/Rx Stated complaint: Cough, needs lab testing Time Seen by Provider: 01/08/24 11:59 Source: patient, RN notes reviewed Mode of arrival: ambulatory Limitations: no limitations - History of Present Illness Initial comments: 43-year-old female presents emergency department complaint of requesting drug screen. Patient states that she is on probation states that she was recently started on BuSpar and states that she tested positive for drugs. She states today she denies using anything she is here for an independent testing. Patient states that she was on Chantix prior to BuSpar for smoking cessation. Patient denies alcohol use. Patient also states that she been having cough for last 4 weeks + improving. She states cough is very irritating, mildly productive. - Related Data Home Medications Medication Instructions Recorded Confirmed Ibuprofen [Motrin] 800 mg PO Q8HR PRN 07/24/04/05/19 Butalb/APAP/Caff 50-325-40Mg 1 tab PO DAILY PRN 04/05/19 04/05/19 [Fioricet 50-325-40] SUMAtriptan succinate [Imitrex] 100 mg PO DAILY PRN 04/05/19 04/05/19 Previous Rx's Medication Instructions Recorded diphenhydrAMINE [Benadryl] 1 - 2 tab PO Q6HR PRN #30 capsule 04/05/19 predniSONE 50 mg PO DAILY #5 tab 04/05/19 predniSONE 50 mg PO DAILY #5 tablet 12/05/19 Dicyclomine [Bentyl] 20 mg PO QID #12 tablet 04/07/20 Ibuprofen [Motrin] 800 mg PO Q6HR #20 tab 02/22/21 clindamycin HCL [Clindamycin HCl] 300 mg PO Q6HR #40 cap 02/22/21 Cephalexin [Keflex] 500 mg PO Q8HR 1 Days #21 cap 05/28/21 diphenhydrAMINE [Benadryl] 50 mg PO QID PRN #20 capsule 06/04/21 predniSONE 50 mg PO DAILY #5 tab 06/04/21 Azithromycin [Zithromax Z Pack] 0 tab PO DIRECTED #6 tab 01/08/24 predniSONE 50 mg PO DAILY #5 tab 01/08/24 Allergies Allergy/AdvReac Type Severity Reaction Status Date / Time No Known Allergies Allergy Verified 06/04/21 09:29 Review of Systems ROS Statement: Those systems with pertinent positive or pertinent negative responses have been documented in the HPI. ROS Other: All systems not noted in ROS Statement are negative. Past Medical History Past Medical History: No Reported History Additional Past Medical History / Comment(s): migraines, skin lesion behind left ear, hx anemia, History of Any Multi-Drug Resistant Organisms: None Reported Past Surgical History: Section, Tonsillectomy Additional Past Surgical History / Comment(s): C/S x 3, Past Anesthesia/Blood Transfusion Reactions: No Reported Reaction Past Psychological History: No Psychological Hx Reported Smoking Status: Current every day smoker Past Alcohol Use History: Occasional Past Drug Use History: None Reported - Past Family History Mother Family Medical History: No Reported History General Exam Limitations: no limitations General appearance: alert, in no apparent distress Head exam: Present: atraumatic, normocephalic, normal inspection Eye exam: Present: normal appearance, PERRL, EOMI. Absent: scleral icterus, conjunctival injection, periorbital swelling ENT exam: Present: normal exam, normal oropharynx, mucous membranes moist Neck exam: Present: normal inspection, full ROM. Absent: tenderness, meningismus, lymphadenopathy Respiratory exam: Present: normal lung sounds bilaterally. Absent: respiratory distress, wheezes, rales, rhonchi, stridor Cardiovascular Exam: Present: regular rate, normal rhythm, normal heart sounds. Absent: systolic murmur, diastolic murmur, rubs, gallop, clicks Course Vital Signs 01/08/24 01/08/24 01/08/24 11:53 12:52 14:30 Temperature 98.2 F Pulse Rate 72 78 Respiratory 12 18 17 Rate Blood Pressure 122/70 121/72 O2 Sat by Pulse 98 98 Oximetry Medical Decision Making - Medical Decision Making Was pt. sent in by a medical professional or institution (, PA, DOCUMENT MANAGEMENT CONSULTANT, urgent care, hospital, or fci...) When possible be specific @ -[No] Did you speak to anyone other than the patient for history (EMS, parent, family, police, friend...)? What history was obtained from this source @ -[No] Did you review nursing and triage notes (agree or disagree)? Why? @ -[I reviewed and agree with nursing and triage notes] Were old charts reviewed (outside hosp., previous admission, EMS record, old EKG, old radiological studies, urgent care reports/EKG's, fci records)? Report findings @ -[No old charts were reviewed] Differential Diagnosis (chest pain, altered mental status, abdominal pain women, abdominal pain men, vaginal bleeding, weakness, fever, dyspnea, syncope, heada ko, dizziness, GI bleed, back pain, seizure, CVA, palpatations, mental health, musculoskeletal)? @ -COVID 19, RSV, influenza, pneumonia, acute bronchitis, URI, this list is not all inclusive EKG interpreted by me (3pts min.). @ -None X-rays interpreted by me (1pt min.). @ -Chest x-ray 2 view no acute cardiopulmonary process CT interpreted by me (1pt min.). @ -[None done] U/S interpreted by me (1pt. min.). @ -[None done] What testing was considered but not performed or refused? (CT, X-rays, U/S, labs)? Why? @ -[None] What meds were considered but not given or refused? Why? @ -[None] Did you discuss the management of the patient with other professionals (professionals i.e. , PA, DOCUMENT MANAGEMENT CONSULTANT, lab, RT, psych nurse, social security specialist, auto heater mechanic, teacher, court officer, adult protective caseworker)? Give summary @ -[No] Was smoking cessation discussed for >3mins.? @ -[No] Was critical care preformed (if so, how long)? @ -[No] Were there social determinants of health that impacted care today? How? (Homelessness, low income, unemployed, alcoholism, drug addiction, transportation, low edu. Level, literacy, decrease access to med. care, half-way, rehab)? @ -[No] Was there de-escalation of care discussed even if they declined (Discuss DNR or withdrawal of care, Hospice)? DNR status @ -[No] What co-morbidities impacted this encounter? (DM, HTN, Smoking, COPD, CAD, Cancer, CVA, ARF, Chemo, Hep., AIDS, mental health diagnosis, sleep apnea, morbid obesity)? @ -[Smoking Was patient admitted / discharged? Hospital course, mention meds given and route, prescriptions, significant lab abnormalities, going to OR and other pertinent info. @ -Discharge patient given results of drug screen. Patient has had productive cough for last 4 weeks we treated for tracheobronchitis return parameters were discussed Undiagnosed new problem with uncertain prognosis? @ -[No] Drug Therapy requiring intensive monitoring for toxicity (Heparin, Nitro, Insulin, Cardizem)? @ -[No] Were any procedures done? @ -[No] Diagnosis/symptom? @ -Tracheobronchitis, drug screen Acute, or Chronic, or Acute on Chronic? @ -Acute Uncomplicated (without systemic symptoms) or Complicated (systemic symptoms)? @ -uncomplicated Side effects of treatment? @ -[No] Exacerbation, Progression, or Severe Exacerbation? @ -[No] Poses a threat to life or bodily function? How? (Chest pain, [place], PA, pneumonia, PE, COPD, DKA, ARF, appy, cholecystitis, CVA, Diverticulitis, Homicidal, Suicidal, threat to staff... and all critical care pts) @ -[No] - Lab Data Lab Results 01/08/24 Range/Units 12:25 Urine Opiates Screen Not Detected (NotDetected) Ur Oxycodone Screen Not Detected (NotDetected) Urine Methadone Screen Not Detected (NotDetected) Ur Barbiturates Screen Not Detected (NotDetected) U Tricyclic Antidepress Not Detected (NotDetected) Ur Phencyclidine Scrn Not Detected (NotDetected) Ur Amphetamines Screen Not Detected (NotDetected) U Methamphetamines Scrn Not Detected (NotDetected) U Benzodiazepines Scrn Detected H (NotDetected) Urine Cocaine Screen Not Detected (NotDetected) U Marijuana (THC) Screen Not Detected (NotDetected) Disposition Clinical Impression: Encounter for drug screening, Tracheobronchitis Disposition: HOME SELF-CARE Condition: Stable Instructions (If sedation given, give patient instructions): Acute Bronchitis (ED) Additional Instructions: Please return to the Emergency Department if symptoms worsen or any other concerns. Prescriptions: predniSONE 50 mg PO DAILY #5 tab Azithromycin [Zithromax Z Pack] 0 tab PO DIRECTED #6 tab Is patient prescribed a controlled substance at d/c from ED?: No Referrals: America Anna MD [Primary Care Provider] - 1-2 days Time of Disposition: 13:57
[2024-01-08 13:48] LABS: Amphetamine Screen,Urine Not Detected (NotDetected); Barbiturate Screen,Urine Not Detected (NotDetected); Benzodiazepines Screen,Urine Detected (NotDetected); Cocaine Screen,Urine Not Detected (NotDetected); Methadone Screen, Urine Not Detected (NotDetected); Opiate Screen,Urine Not Detected (NotDetected); Oxycodone Screen, Urine Not Detected (NotDetected); Phencyclidine Screen,Urine Not Detected (NotDetected); Tricyclic Antidepressant,Urine Not Detected (NotDetected); Urn Cannabinoid Scrn Not Detected (NotDetected)
[2024-01-08 14:37] VITALS: BP 121/72; PULSE 78; RESP 17
== END 2024-01-08 14:31 | disposition home or self-care (01) ==
LOC: EC 11:11
DX: Z02.83 Encounter for blood-alcohol and blood-drug test (principal); J40 Bronchitis, not specified as acute or chronic; F17.200 Nicotine dependence, unspecified, uncomplicated
CPT/HCPCS: 71046; 80306; 99283

== ENCOUNTER 2024-06-15 11:12 | Emergency (ER) | payer OTHER ==
[2024-06-15 11:27] VITALS: RESP 18
--- NOTE | 2024-06-15 12:17 | ED ---
Headache HPI - General Source: patient, RN notes reviewed Mode of arrival: ambulatory Limitations: no limitations <Matilde Boo - Last Filed: 06/15/24 12:16> - General Source: patient, RN notes reviewed Mode of arrival: ambulatory Limitations: no limitations - History of Present Illness MD Complaint: "migraine" <Olga Rivera - Last Filed: 06/15/24 16:38> - General Chief Complaint: Headache Stated Complaint: Headache Time Seen by Provider: 06/15/24 11:38 - History of Present Illness Initial Comments: quick note-this is a 44-year-old female with past medical history of migraines who presents emergency department chief complaint of a migraine that started this morning. She endorses nausea, vomiting, photophobia, intermittent blurry vision and bilateral upper extremity paresthesias. Patient states that the symptoms that she is experiencing is similar to previous migraines in the past. She has taken Motrin this morning with minimal relief. (Matilde Boo) This is a 44-year-old female who presents to the emergency department for a migraine. States that she has a history of migraines and every now and then gets a severe migraine. This one started this morning. She has associated nausea and photophobia. This is not the worst headache of her life and states that it is consistent with a migraine that she has had in the past. She tried taking ibuprofen without any relief in symptoms. States that when she comes to the emergency department for a migraine she typically receives the migraine cocktail which is often effective. She is not on any preventative medications. She has tried abortive medications in the past that have not been helpful. (Olga Rivera) - Related Data Home Medications Medication Instructions Recorded Confirmed Ibuprofen [Motrin] 800 mg PO Q8HR PRN 07/24/14 04/05/19 Butalb/APAP/Caff 50-325-40Mg 1 tab PO DAILY PRN 04/05/19 04/05/19 [Fioricet 50-325-40] SUMAtriptan succinate [Imitrex] 100 mg PO DAILY PRN 04/05/19 04/05/19 Previous Rx's Medication Instructions Recorded diphenhydrAMINE [Benadryl] 1 - 2 tab PO Q6HR PRN #30 capsule 04/05/19 predniSONE 50 mg PO DAILY #5 tab 04/05/19 predniSONE 50 mg PO DAILY #5 tablet 12/05/19 Dicyclomine [Bentyl] 20 mg PO QID #12 tablet 04/07/20 Ibuprofen [Motrin] 800 mg PO Q6HR #20 tab 02/22/21 clindamycin HCL [Clindamycin HCl] 300 mg PO Q6HR #40 cap 02/22/21 Cephalexin [Keflex] 500 mg PO Q8HR 1 Days #21 cap 05/28/21 diphenhydrAMINE [Benadryl] 50 mg PO QID PRN #20 capsule 06/04/21 predniSONE 50 mg PO DAILY #5 tab 06/04/21 Azithromycin [Zithromax Z Pack] 0 tab PO DIRECTED #6 tab 01/08/24 predniSONE 50 mg PO DAILY #5 tab 01/08/24 Ketorolac [Toradol] 10 mg PO Q6HR PRN #15 tab 06/15/24 Ondansetron Odt [Zofran Odt] 4 mg PO Q8HR PRN #15 tab 06/15/24 Allergies Allergy/AdvReac Type Severity Reaction Status Date / Time No Known Allergies Allergy Verified 06/15/24 11:27 Review of Systems ROS Other: All systems not noted in ROS Statement are negative. <Matilde Boo - Last Filed: 06/15/24 12:16> ROS Other: All systems not noted in ROS Statement are negative. <Olga Rivera - Last Filed: 06/15/24 16:38> ROS Statement: Those systems with pertinent positive or pertinent negative responses have been documented in the HPI. Past Medical History Past Medical History: No Reported History Additional Past Medical History / Comment(s): migraines, skin lesion behind left ear, hx anemia, History of Any Multi-Drug Resistant Organisms: None Reported Past Surgical History: Section, Tonsillectomy Additional Past Surgical History / Comment(s): C/S x 3, Past Anesthesia/Blood Transfusion Reactions: No Reported Reaction Past Psychological History: No Psychological Hx Reported Smoking Status: Current every day smoker Past Alcohol Use History: Occasional Past Drug Use History: None Reported - Past Family History Mother Family Medical History: No Reported History <Matilde Boo - Last Filed: 06/15/24 12:16> General Exam Limitations: no limitations <Matilde Boo - Last Filed: 06/15/24 12:16> Limitations: no limitations General appearance: alert, in no apparent distress Head exam: Present: atraumatic, normocephalic, normal inspection Eye exam: Present: normal appearance, PERRL, EOMI. Absent: scleral icterus, conjunctival injection, periorbital swelling Respiratory exam: Present: normal lung sounds bilaterally. Absent: respiratory distress, wheezes, rales, rhonchi, stridor Cardiovascular Exam: Present: regular rate, normal rhythm, normal heart sounds. Absent: systolic murmur, diastolic murmur, rubs, gallop, clicks Neurological exam: Present: alert, oriented X3, CN II-XII intact Psychiatric exam: Present: normal affect, normal mood Skin exam: Present: warm, dry, intact, normal color. Absent: rash <Olga Rivera - Last Filed: 06/15/24 16:38> - General Exam Comments Initial Comments: Visual Physical Exam Vital signs reviewed General: Well-appearing, nontoxic, no acute distress. Head: Normocephalic, atraumatic Eyes: PERRLA, EOMI ENT: Airway patent Chest: Nonlabored breathing Skin: No visual rash, normal skin tone Neuro: Alert and oriented 3 Musculoskeletal: No gross abnormalities (Matilde Boo) Course Vital Signs 06/15/24 06/15/24 11:25 15:33 Temperature 98.0 F 98.2 F Pulse Rate 90 86 Respiratory 18 18 Rate Blood Pressure 137/88 135/77 O2 Sat by Pulse 98 98 Oximetry Medical Decision Making <Matilde Boo - Last Filed: 06/15/24 12:16> <Olga Rivera - Last Filed: 06/15/24 16:38> - Medical Decision Making I completed the quick note portion of this chart signed Matilde Boo PA-C (Matilde Boo) This is a 44 year old female who presents to the emergency department for a migraine. Was pt. sent in by a medical professional or institution? @ -No Did you speak to anyone other than the patient for history? @ -No Did you review nursing and triage notes? @ -Yes, and I agree, it is accurate with regards to the patient's symptoms. Were old charts reviewed? @ -No Differential Diagnosis? @ -Differential Headache: Migraine, tension, cluster, carbon monoxide, central venous thrombosis, pension karma temporal arteritis, acute closure glaucoma, intercranial hemorrhage, mastoiditis, sinusitis, head injury, this is not meant to be an all-inclusive list. EKG interpreted by me (3pts min.)? @ -[none] EKG interpreted by me demonstrating the following: X-rays interpreted by me (1pt min.)? @ -[none] CT interpreted by me (1pt min.)? @ -[none] U/S interpreted by me (1pt. min.)? @ -[none] What testing was considered but not performed? (CT, X-rays, U/S, labs)? Why? @ [CT, X-rays, U/S, labs? Why?] What meds were considered but not given? Why? @ -[none] Did you discuss the management of the patient with other professionals? @ -No Did you reconcile home meds? @ -No Was smoking cessation discussed for >3mins.? @ -No Was critical care preformed (if so, how long)? @ -No Were there social determinants of health that impacted care today? How? (Homelessness, low income, unemployed, alcoholism, drug addiction, transportation, low edu. Level, literacy, decrease access to med. care, alf, rehab)? @ -No Was there de-escalation of care discussed even if they declined? (Discuss DNR or withdrawal of care, Hospice)? @ -No What co-morbidities impacted this encounter? (DM, HTN, Smoking, COPD, CAD, Cancer, CVA, Hep., AIDS, mental health diagnosis, sleep apnea, morbid obesity)? @ -[DM, HTN, Smoking, COPD, CAD, Cancer, CVA, Hep., AIDS, mental health diagnosis, sleep apnea, morbid obesity?] Was patient admitted / discharged? @ -[hospital course] Undiagnosed new problem with uncertain prognosis? @ -None Drug Therapy requiring intensive monitoring for toxicity (Heparin, Nitro, Insulin, Cardizem)? @ -None Were any procedures done? @ -None Diagnosis/symptom? @ -[default] Acute, or Chronic, or Acute on Chronic? @ -[default] Uncomplicated (without systemic symptoms) or Complicated (systemic symptoms)? @ -[default] Side effects of treatment? @ -[none] Exacerbation, Progression, or Severe Exacerbation] @ -Not applicable Poses a threat to life or bodily function? @ -[no] Return precautions reviewed in depth, the patient is instructed to return to the emergency department with any new, worsening, or concerning symptoms. Patient verbalized understanding. This case was discussed in detail with the attending ED physician. Presentation, findings, and treatment plan discussed in detail as well. (Olga Rivera) Disposition <Matilde Boo - Last Filed: 06/15/24 12:16> Is patient prescribed a controlled substance at d/c from ED?: No Time of Disposition: 15:12 <Olga Rivera - Last Filed: 06/15/24 16:38> Clinical Impression: Migraine Disposition: HOME SELF-CARE Instructions (If sedation given, give patient instructions): Migraine Headache (ED) Additional Instructions: Return to the emergency department with any new, worsening, or concerning symptoms. Take the Toradol with Tylenol as needed for pain relief. If you choose to take the Toradol, do not take any other anti-inflammatories such as ibuprofen, take one or the other. You can take the Zofran up to every 8 hours as needed for nausea and vomiting. Follow up with your primary care provider in 1-2 days. Prescriptions: Ketorolac [Toradol] 10 mg PO Q6HR PRN #15 tab PRN Reason: Pain Ondansetron Odt [Zofran Odt] 4 mg PO Q8HR PRN #15 tab PRN Reason: Nausea And Vomiting Referrals: America Anna MD [Primary Care Provider] - 1-2 days
[2024-06-15] MEDS: SODIUM CHLORIDE 0.9% 1,000 ML IV STA (13:57)
[2024-06-15] MEDS: KETOROLAC 15 MG/ML 1 ML VIAL IVP STA (14:25)
[2024-06-15] MEDS: METOCLOPRAMIDE 5 MG/ML 2 ML VIAL IVP STA (14:25)
[2024-06-15] MEDS: DEXAMETHASONE SOD PHOSPHATE 10 MG/ML 1 ML VIAL IVP STA (14:26)
[2024-06-15] MEDS: diphenhydrAMINE 50 MG/ML 1 ML VIAL IVP STA (14:26)
[2024-06-15 15:35] VITALS: BP 135/77; PULSE 86; TEMP 98.2
== END 2024-06-15 15:33 | disposition home or self-care (01) ==
LOC: EC 11:12
DX: G43.909 Migraine, unspecified, not intractable, without status migrainosus (principal); I10 Essential (primary) hypertension; E11.8 Type 2 diabetes mellitus with unspecified complications; J44.9 Chronic obstructive pulmonary disease, unspecified; Z86.73 Personal history of transient ischemic attack (TIA), and cerebral infarction without residual deficits; E66.01 Morbid (severe) obesity due to excess calories; Z68.27 Body mass index [BMI] 27.0-27.9, adult; F17.200 Nicotine dependence, unspecified, uncomplicated
CPT/HCPCS: 99283; 96374; 96375 ×3; 96361 ×2; J1200; J1100; J2765; J1885